=== PATIENT | female | born 1990 | race Caucasian/White ===

== ENCOUNTER 2017-03-22 09:51 | Emergency (ER) | payer OTHER ==
[~2017-03-22] VITALS: Ht 154.9 cm; Wt 89.4 kg
[2017-03-22 09:53] VITALS: TEMP 36.8; Ht 154.9 cm; Wt 89.4 kg
[2017-03-22] MEDS ORDERED: SODIUM CHLORIDE 0.9% 1000ML 1,000 ML IV STA (10:11)
[2017-03-22 10:52] LABS: URINE APPEARANCE CLEAR (CLEAR); URINE BILIRUBIN NEG (NEG); URINE COLOR YELLOW; URINE EPITHELIAL CELL AUTO >30 /lpf (0-5); URINE NITRITE NEG (NEG); URINE SPECIFIC GRAVITY 1.021 (1.000-1.030); UROBILINOGEN NEG (NEG); ZZUR CULT IF INDIC CLEAN CATCH YES
[2017-03-22 10:52] LABS: BASO % 0.6 %; BASO ABS # 0.04 K/uL (0-0.2); COMPLETE YES; EOS % 2.4 %; HEMATOCRIT 42.2 % (37-47); IG% 0.2 %; LYMPH % 39.4 %; LYMPH ABS # 2.49 K/uL (1.2-3.4); MEAN CELL VOLUME 92.1 fL (80-100); MEAN CORPUSCULAR HEMOGLOBIN 31.7 pg (25-34); MEAN CORPUSCULAR HGB CONC 34.4 g/dl (32-36); MEAN PLATELET VOLUME 9.9 fL (7.4-10.4); MONO % 11.2 %; NEUT % 46.2 %; PLATELET COUNT 257 K/uL (130-400); RED BLOOD COUNT 4.58 M/uL (4.2-5.4); WHITE BLOOD COUNT 6.32 K/uL (4.8-10.8)
[2017-03-22 10:53] LABS: MANUAL MICROSCOPIC REQUIRED? NO; REVIEW REQ? YES
[2017-03-22 11:07] LABS: ALKALINE PHOSPHATASE 91 U/L (45-117); ALT/SGPT 14 U/L (12-78); AST/SGOT 14 U/L (15-37); BLOOD UREA NITROGEN 11 mg/dl (7-18); BUN/CREATININE RATIO 13.2 (10-20); CALCIUM 8.7 mg/dl (8.5-10.1); CARBON DIOXIDE 23 mmol/L (21-32); CHLORIDE 110 mmol/L (98-107); CREATININE 0.82 mg/dl (0.60-1.20); GLUCOSE 108 mg/dl (70-99); POTASSIUM 4.1 mmol/L (3.5-5.1); SODIUM 141 mmol/L (136-145)
--- NOTE | 2017-03-22 11:07 | DIAGNOSTIC IMAGING REPORT ---
BILIARY ULTRASOUND CLINICAL HISTORY: Right upper quadrant abdominal pain COMPARISON STUDY: No previous studies for comparison. FINDINGS: The pancreas appears sonographically normal. The gallbladder appears sonographically normal. There is no ductal dilatation. The common bile duct measures 4 mm. There is no right-sided hydronephrosis. Within the right lobe of the liver, there is a 15 x 10 x 8 mm hyperechoic focus. This is consistent with although not specific for a hepatic hemangioma. IMPRESSION: 1. Ultrasonographically normal gallbladder 2. No evidence of ductal dilatation 3. Incidental 15 x 10 x 8 mm hyperechoic focus within the liver. Electronically signed by: Chris Hector M.D. 03/22/2017 11:06 AM Dictated Date/Time: 03/22/2017 11:04 AM
[2017-03-22] MEDS ORDERED: LEVO-713 PO (11:15)
[2017-03-22 12:26] VITALS: BP 100/66; PULSE 78; O2SAT 100
--- NOTE | 2017-03-22 16:23 | EMERGENCY ROOM VISIT NOTE ---
History Report prepared by Shan: Chaitanya Morales Under the Supervision of: Dr. Porter Rodriguez D.O. First contact with patient: 10:01 Chief Complaint: ABDOMINAL PAIN Stated Complaint: POSS. GALLBLADDER ISSUE Nursing Triage Summary: pt reports nausea and right abd abd pain since sunday. pt reports she was seen at [facility] and sent to ed for further eval. pt reports "all the women in my family have had their gall bladders out." History of Present Illness The patient is a 26 year old female who presents to the Emergency Room with complaints of constant RUQ abdominal pain that began four days ago. She rates her pain an 8/10 in severity. The patient was seen at [facility] and was referred to the ER for a possible gallbladder issue. Since Sunday, the patient has been having this constant pain that she describes as someone "punching her in the stomach repeatedly." She is also experiencing nausea. She notes that ever woman in her family has had their gallbladder removed. She denies any known history of gallstones. She states that nothing makes her symptoms better or worse, even fatty foods/drinking. She denies any fevers, cough, rhinorrhea, chest pain, shortness of breath, or abnormal urinary symptoms. Her last menstrual period was last week. She denies any previous abdominal surgeries. Source of History: patient Onset: four days ago Position: abdomen (RUQ) Symptom Intensity: 8/10 Quality: sharp Timing: constant Associated Symptoms: + nausea, No fevers, No cough, No chest pain, No SOB, No urinary symptoms Review of Systems See HPI for pertinent positives & negatives. A total of 10 systems reviewed and were otherwise negative. Past Medical & Surgical No known medical problems Family History FH: gallbladder disease Social History Smoking Status: Current Every Day Smoker Smokeless Tobacco Use: No Drug Use: none Housing Status: lives alone Occupation Status: employed Current/Historical Medications Scheduled Levonorgestrel & Eth Estradiol (Lutera), 1 TAB PO DAILY Allergies Coded Allergies: Amoxicillin (Unverified Adverse Reaction, Intermediate, HEAD TO TOE RASH, 03/22/17) Physical Exam Vital Signs Date Time Temp Pulse Resp B/P (MAP) Pulse Ox O2 Delivery O2 Flow Rate FiO2 03/22/17 12:26 78 20 100/66 100 Room Air 03/22/17 12:26 73 20 100/66 100 03/22/17 11:13 71 18 95/66 97 Room Air 03/22/17 09:53 36.8 90 18 112/80 98 Room Air Physical Exam GENERAL: Sitting up in bed holding RUQ, alert, well appearing, well nourished, minimal distress, non-toxic EYE EXAM: normal conjunctiva OROPHARYNX: no exudate, no erythema, lips, buccal mucosa, and tongue normal and mucous membranes are moist NECK: supple, no nuchal rigidity, no adenopathy, non-tender LUNGS: Clear to auscultation. Normal chest wall mechanics HEART: no murmurs, S1 normal and S2 normal ABDOMEN: abdomen soft, tenderness to palpation to the RUQ, normo-active bowel sounds, no masses, no rebound or guarding. BACK: Back is symmetrical on inspection and there is no deformity, no midline tenderness, no CVA tenderness. SKIN: no rashes and no bruising UPPER EXTREMITIES: upper extremities are grossly normal. LOWER EXTREMITIES: No pitting edema. NEURO EXAM: Normal sensorium, cranial nerves II-XII grossly intact, normal speech, no gross weakness of arms, no gross weakness of legs. Medical Decision & Procedures ER Provider Diagnostic Interpretation: Radiology results as stated below per my review and the radiologist's interpretation: BILIARY ULTRASOUND CLINICAL HISTORY: Right upper quadrant abdominal pain COMPARISON STUDY: No previous studies for comparison. FINDINGS: The pancreas appears sonographically normal. The gallbladder appears sonographically normal. There is no ductal dilatation. The common bile duct measures 4 mm. There is no right-sided hydronephrosis. Within the right lobe of the liver, there is a 15 x 10 x 8 mm hyperechoic focus. This is consistent with although not specific for a hepatic hemangioma. IMPRESSION: 1. Ultrasonographically normal gallbladder 2. No evidence of ductal dilatation 3. Incidental 15 x 10 x 8 mm hyperechoic focus within the liver. Electronically signed by: Chris Hector M.D. 03/22/2017 11:06 AM Dictated Date/Time: 03/22/2017 11:04 AM Laboratory Results 03/22/17 10:25 Red Blood Count 4.58, Mean Corpuscular Volume 92.1, Mean Corpuscular Hemoglobin 31.7, Mean Corpuscular Hemoglobin Concent 34.4, Mean Platelet Volume 9.9, Neutrophils (%) (Auto) 46.2, Lymphocytes (%) (Auto) 39.4, Monocytes (%) (Auto) 11.2, Eosinophils (%) (Auto) 2.4, Basophils (%) (Auto) 0.6, Neutrophils # (Auto ) 2.92, Lymphocytes # (Auto) 2.49, Monocytes # (Auto) 0.71, Eosinophils # (Auto ) 0.15, Basophils # (Auto) 0.04 03/22/17 10:25 Test 03/22/17 10:23 03/22/17 10:25 Urine Color YELLOW Urine Appearance CLEAR (CLEAR) Urine pH 5.0 (4.5-7.5) Urine Specific [place] 1.021 (1.000-1.030) Urine Protein NEG (NEG) Urine Glucose (UA) NEG (NEG) Urine Ketones NEG (NEG) Urine Occult Blood 2+ (NEG) Urine Nitrite NEG (NEG) Urine Bilirubin NEG (NEG) Urine Urobilinogen NEG (NEG) Urine Leukocyte Esterase TRACE (NEG) Urine WBC (Auto) 1-5 /hpf (0-5) Urine RBC (Auto) 0-4 /hpf (0-4) Urine Hyaline Casts (Auto) 1-5 /lpf (0-5) Urine Epithelial Cells (Auto) >30 /lpf (0-5) Urine Bacteria (Auto) 2+ (NEG) Urine Yeast (Auto) (NONE PRSENT) Urine Test NEG (NEG) White Blood Count 6.32 K/uL (4.8-10.8) Red Blood Count 4.58 M/uL (4.2-5.4) Hemoglobin 14.5 g/dL (12.0-16.0) Hematocrit 42.2 % (37-47) Mean Corpuscular Volume 92.1 fL (80-100) Mean Corpuscular Hemoglobin 31.7 pg (25-34) Mean Corpuscular Hemoglobin Concent 34.4 g/dl (32-36) Platelet Count 257 K/uL (130-400) Mean Platelet Volume 9.9 fL (7.4-10.4) Neutrophils (%) (Auto) 46.2 % Lymphocytes (%) (Auto) 39.4 % Monocytes (%) (Auto) 11.2 % Eosinophils (%) (Auto) 2.4 % Basophils (%) (Auto) 0.6 % Neutrophils # (Auto) 2.92 K/uL (1.4-6.5) Lymphocytes # (Auto) 2.49 K/uL (1.2-3.4) Monocytes # (Auto) 0.71 K/uL (0.11-0.59) Eosinophils # (Auto) 0.15 K/uL (0-0.5) Basophils # (Auto) 0.04 K/uL (0-0.2) RDW Standard Deviation 42.3 fL (36.4-46.3) RDW Coefficient of Variation 12.5 % (11.5-14.5) Immature Granulocyte % (Auto) 0.2 % Immature Granulocyte # (Auto) 0.01 K/uL (0.00-0.02) Anion Gap 8.0 mmol/L (3-11) Est Creatinine Clear Calc Drug Dose 107.6 ml/min Estimated GFR () 116.1 Estimated GFR (Non- 100.2 BUN/Creatinine Ratio 13.2 (10-20) Calcium Level 8.7 mg/dl (8.5-10.1) Total Bilirubin 0.5 mg/dl (0.2-1) Direct Bilirubin mg/dl (0-0.2) Aspartate Amino Transf (AST/SGOT) 14 U/L (15-37) Alanine Aminotransferase (ALT/SGPT) 14 U/L (12-78) Alkaline Phosphatase 91 U/L (45-117) Total Protein 7.2 gm/dl (6.4-8.2) Albumin 3.3 gm/dl (3.4-5.0) Lipase 84 U/L (73-393) Chemistry Specimen Hemolysis Laboratory results per my review. Medications Administered Medications (Trade) Dose Ordered Sig/Macario Route Start Time Stop Time Status Last Admin Dose Admin Sodium Chloride 1,000 ml @ 999 mls/hr Q1H1M STAT IV 03/22/17 10:11 03/22/17 11:11 DC 03/22/17 10:31 999 MLS/HR ED Course ED COURSE: Vital signs were reviewed and showed normal vitals. The patients medical record was reviewed The above diagnostic studies were performed and reviewed. ED treatments and interventions as stated above. 1001: The patient was evaluated in room A3. A complete history and physical examination was performed. 1011: Ordered Sodium Chloride 1000 ml @ 999 mls/hr IV 1230: Upon reevaluation, the patient is resting. I discussed my findings with the patient and she understands and agrees with the treatment plan. Based on the patients age, coexisting illnesses, exam and lab findings the decision to treat as an outpatient was made. The patient remained stable while under my care. The patient appeared well at the time of discharge. Medical Decision Differential diagnoses includes but is not limited to gastritis, peptic ulcer disease, GERD, gallbladder disease, pancreatitis, small bowel obstruction, acute coronary syndrome, pericarditis, ischemic bowel, irritable bowel disease, irritable bowel syndrome, appendicitis, diverticulitis, malignancy, hernia, urinary tract infection, torsion, /ectopic , perforation, trauma, infectious. Patient is a 26-year-old female who presents to ER for epigastric abdominal pain. She notes nothing makes this better or worse. It has been present for the past several days. Patient is no other complaints. No chest pain or shortness breath. On exam she does have minimal tenderness in the right upper quadrant. Ultrasound shows no signs of cholecystitis or choledocholithiasis. LFTs and bilirubin along with CBC and BMP was unremarkable. UA had multiple bacteria and epithelial cells suggesting contamination. was negative. Patient declined pain meds. She was discharged follow-up with PCP. Care management did help her set up an appointment. Discussed with Pt concerning signs and symptoms to watch out for. Pt was instructed to follow up with their PCP and discussed with the patient their option to return to the ED at anytime for persistent or worsening symptoms. The appropriate anticipatory guidance and out-patient management, including indications for return to the emergency department, were explained at length to the patient and understood. Medication Reconcilliation Current Medication List: was personally reviewed by me Blood Pressure Screening Patient's blood pressure: Normal blood pressure Blood pressure disposition: Did not require urgent referral Impression Primary Impression: Right upper quadrant abdominal pain Scribe Attestation The scribe's documentation has been prepared under my direction and personally reviewed by me in its entirety. I confirm that the note above accurately reflects all work, treatment, procedures, and medical decision making performed by me. Departure Information Dispostion Home / Self-Care Referrals No Doctor, Assigned (PCP) Forms HOME CARE DOCUMENTATION FORM, IMPORTANT VISIT INFORMATION Patient Instructions Abdominal Pain - [facility], [facility] Additional Instructions Please follow up with your primary care doctor with in the next 24 hours. Any worsening of your symptoms, please return to the ED immediately. This includes any fevers greater than 100.4, worsening pain, chest pain, shortness breath, persistent nausea, vomiting, unable to eat or drink, or any other concerning signs or symptoms from your standpoint. Please take Tylenol or Motrin as needed for pain.
== END 2017-03-22 12:27 | disposition home or self-care (01) ==
LOC: C.EDB 09:54 → C.EDA 12:27
DX: R10.11 Right upper quadrant pain (principal); F17.210 Nicotine dependence, cigarettes, uncomplicated; Z79.3 Long term (current) use of hormonal contraceptives

== ENCOUNTER 2017-05-07 07:18 | Day surgery (SDC) | payer OTHER ==
[2017-05-03 08:40] VITALS: BMI 37.0
[~2017-05-07] VITALS: Ht 154.9 cm; Wt 89.5 kg
[~2017-05-07 07:18] MED LIST: CLINDAMYCIN IV 900 MG in DEXTROSE 5% 50ML 44 ML IV SCH; LACTATED RINGER'S 1000ML 1,000 ML IV SCH; LEVO-645 PO
[2017-05-07] MEDS ORDERED: MIDAZOLAM HCL 1 MG/ML 2ML VIAL ONE (07:45)
[2017-05-07] MEDS ORDERED: PROPOFOL IV EMULSION 10 MG/ML 20 ML VIAL IV ONE (07:45)
[2017-05-07] MEDS ORDERED: ROCURONIUM BROMIDE 10 MG/ML 5 ML VIAL IV ONE (07:45)
[2017-05-07] MEDS ORDERED: LIDOCAINE HCL 2% 2 ML VIAL (20MG/ML) ONE (07:45)
[2017-05-07] MEDS ORDERED: FENTANYL CITRATE INJ 50 MCG/1 ML 2 ML VIAL ONE ×2 (07:45→08:52)
[2017-05-07 07:51] VITALS: BP 121/73; PULSE 91; TEMP 37.1; O2SAT 96; Ht 154.9 cm; Wt 89.5 kg
[2017-05-07] MEDS ORDERED: PROMETHAZINE HCL INJ 12.5 MG in SODIUM CHLORIDE 0.9% 50ML 50 ML IV PRN (08:00)
[2017-05-07] MEDS ORDERED: ONDANSETRON INJ 2 MG/ML 2 ML VIAL IV PRN ×2 (08:00→09:45)
[2017-05-07] MEDS ORDERED: CHECK SCOPOLAMINE PATCH PLACEMENT SCH (08:00)
[2017-05-07] MEDS ORDERED: ATROPINE SULFATE 0.1 MG/ML 5ML SYR IV PRN (08:00)
[2017-05-07] MEDS ORDERED: HYDROmorphone INJ 1 MG/ML SYR IV PRN (08:00)
[2017-05-07] MEDS ORDERED: EpHEDrine SULFATE INJ 50 MG/ML AMP IV PRN (08:00)
[2017-05-07] MEDS ORDERED: SCOPOLAMINE 1.5 MG TDSY TD SCH (08:00)
[2017-05-07] MEDS ORDERED: SCOPOLAMINE 1.5 MG TDSY TD ONE (08:17)
--- NOTE | 2017-05-07 08:24 | History & Physical Bridge Note ---
H&P Re-Evaluation Bridge Note: I have examined the patient, reviewed the History & Physical and in the interval since the performance of the History & Physical I have noted the following changes of clinical significance: No changes noted
[2017-05-07] MEDS ORDERED: BUPIVACAINE 0.5 % 5 MG/1 ML MPF 30ML VIAL ONE (08:26)
[2017-05-07] MEDS ORDERED: CONRAY 60% 50 ML VIAL ONE (08:26)
[2017-05-07] MEDS ORDERED: CEFAZOLIN SOD 1 GM VIAL ONE (08:26)
[2017-05-07] MEDS ORDERED: HEPARIN SOD (PORCINE) 1000 UNIT/ML 10 ML VIAL ONE (08:26)
[2017-05-07] MEDS ORDERED: GLYCOPYRROLATE INJ 0.2 MG/ML VIAL ONE (08:52)
[2017-05-07] MEDS ORDERED: ONDANSETRON INJ 2 MG/ML 2 ML VIAL ONE (08:52)
[2017-05-07] MEDS ORDERED: NEOSTIGMINE METHYLSULFATE 5 MG/5 ML SYR ONE (08:52)
[2017-05-07] MEDS ORDERED: DEXAMETHASONE SOD INJ 4 MG/ML VIAL ONE (08:52)
[2017-05-07] MEDS ORDERED: SODIUM CHLORIDE 0.9% 1000ML 1,000 ML IV SCH (09:41)
--- NOTE | 2017-05-07 09:41 | [facility] Post Operative Brief Note ---
Immediate Operative Summary Operative Date May 07, 2017. Pre-Operative Diagnosis gallbladder disease Post-Operative Diagnosis gallbladder disease Procedure(s) Performed laparoscopic cholecystectomy Surgeon Dr. Rodrick Garrido Telecom Analyst Surgeon(s) Shani FRANCES Estimated Blood Loss 3 cc Findings See dictation Specimens A: gallbladder and contents Drains None Anesthesia General Complication(s) None Disposition Recovery Room / PACU
[2017-05-07] MEDS ORDERED: MoRPHine SULFATE 4 MG/ML 1 ML CARP\\VIAL IV PRN (09:45)
[2017-05-07] MEDS ORDERED: OXYCODONE/ACETAMINOPHEN 5-325 TAB PO PRN (09:45)
--- NOTE | 2017-05-07 09:47 | Discharge Instructions ---
Discharge Instructions Date of Service May 07, 2017. Admission Reason for Admission: Gallbladder Disease Discharge Discharge Diagnosis / Problem: Same Discharge Goals Goal(s): Decrease discomfort Activity Recommendations Activity Limitations: per Instructions/Follow-up section Lifting Limitations: no more than 10 pounds (for 2 weeks) Shower/Bathe: tomorrow (shower only) . Instructions / Follow-Up Instructions / Follow-Up Post-Surgical ~ Discharge Instructions Activity Recommendations: - lifting limitation: (10 pounds for 2 weeks), - exercise/sex/sports limit: (nonstrenuous for 2 weeks), - driving or machine use limit: (none for 1 week), - Shower/bathe limit: (may shower beginning tomorrow) Diet: - Resume previous diet SPECIAL CARE INSTRUCTIONS: - May shower in 24 hours. Let water run over area and pat dry. - Leave steri strips on for one week. - Call the surgeon's office with any questions or concerns - - (ex. temperature higher than 101 degrees F, excessive bleeding or pain). MEDICATIONS: - Resume previous medications unless instructed otherwise by your surgeon. - Ibuprofen 600 mg every 6 hours with food - Percocet 1 every 4 hours, as needed for pain FOLLOW UP VISIT: - If not already scheduled, please call the office to schedule a two week follow-up appointment. Office number Current Hospital Diet Patient's current hospital diet: Discharge Diet Recommended Diet: Regular Diet Procedures Procedures Performed: laparoscopic cholecystectomy Pending Studies Studies pending at discharge: yes List of pending studies: Pathology Medical Emergencies . Who to Call and When: Medical Emergencies: If at any time you feel your situation is an emergency, please call 911 immediately. . Non-Emergent Contact Non-Emergency issues call your: Primary Care Provider, Surgeon Call Non-Emergent contact if: your pain is worsening, wound has increased redness, wound has increased pain . "Provider Documentation" section prepared by Rodrick Garrido. . VTE Core Measure Inpt VTE Proph given/why not?: Treatment not indicated
[2017-05-07] MEDS: FENTANYL CITRATE INJ 50 MCG/1 ML 2 ML VIAL IV PRN ×2 (10:00→10:05)
--- NOTE | 2017-05-07 10:07 | OPERATIVE REPORT ---
DATE OF OPERATION: 05/07/2017 PREOPERATIVE DIAGNOSIS: Gallbladder dyskinesia. POSTOPERATIVE DIAGNOSIS: Same. PROCEDURE: Laparoscopic cholecystectomy. SURGEON: Dr. Garrido. HEALTHCARE APPLICATIONS ANALYST: Shani Jenkins PA-C FINDINGS: The gallbladder had some adhesions to the infundibulum area. These were blunt. The cystic duct was not dilated. The gallbladder was not dilated. The visible bowel was normal. The liver was of normal size and contour. TECHNIQUE: The patient was given a general anesthetic and the area was prepped and draped in the usual sterile fashion. Transverse incision was made below the umbilicus, carried down through the subcutaneous tissue to the fascia which was grasped with 2 Marshal clamps and incised between. The peritoneum was identified, incised, and an introducer was placed bluntly. The abdomen was then insufflated to a pressure of 15 mmHg with carbon dioxide. The upper midline, midclavicular and anterior axillary introducers were placed under direct vision through small skin incisions. Traction was placed on the gallbladder and the adhesions were taken down using blunt cautery, dissection were appropriate. The infundibulum was grasped and the peritoneum was opened on the lateral side. It was peeled down towards the common bile duct and the infundibulum was dissected away from the liver on that side. The dissection was carried over the anterior surface of the infundibulum and the triangle of Calot was opened and the gallbladder was dissected away from the liver on that medial side, allowing me to create a window at the lower portion of the infundibulum behind the cystic duct and cystic artery. Further dissection of connective tissue, fatty tissue and lymphatics exposed the cystic duct and I was able to isolate it 360 degrees. That also allowed me to confidently identify the cystic duct gallbladder junction. Two clips were placed on the proximal cystic duct, 1 near the gallbladder and was divided. The cystic artery was then isolated and skeletonized. The artery was clipped twice proximally and once near the gallbladder and divided. The gallbladder was then peeled off the liver bed using electrocautery. The gallbladder was placed into an Endobag and brought out through the upper midline incision with ease. That introducer was replaced and liver edge was elevated. The gallbladder bed of the liver was inspected and there was no bleeding. The subdiaphragmatic and subhepatic spaces were irrigated and the irrigation removed. The gallbladder bed of the liver was again inspected and there was no bleeding. The gas was allowed to escape and the introducers were removed. The fascia of the umbilical introducer site was closed with interrupted 0 Vicryl and skin of all the incisions was closed with 4-0 Monocryl in either an interrupted or running subcuticular fashion. The skin was anesthetized with 0.5% Marcaine. The skin was the cleansed, dried, benzoin placed, Steri-Strips applied. Estimated blood loss was 30 mL. Sponge, needle and instrument counts were correct prior to closure. The patient tolerated the surgical procedure without complication and was transferred to recovery. I attest to the content of the Intraoperative Record and any orders documented therein. Any exception s are noted below.
[2017-05-07] MEDS ORDERED: NURSING VERBAL MED ORDER ONE ×2 (11:00→13:15)
[2017-05-07] MEDS ORDERED: PROMETHAZINE HCL INJ 12.5 MG in SODIUM CHLORIDE 0.9% 50ML 50 ML IV ONE (11:15)
--- NOTE | 2017-05-07 11:30 | Anesthesiology Progress Note ---
Anesthesia Post Op Note Date & Time May 07, 2017 at 11:29 Vital Signs Pain Intensity: 2 Vital Signs Past 12 Hours Date Time Temp Pulse Resp B/P (MAP) Pulse Ox O2 Delivery O2 Flow Rate FiO2 05/07/17 11:25 74 19 126/81 95 Nasal Cannula 2 05/07/17 11:15 77 20 131/80 96 Nasal Cannula 2 05/07/17 11:05 73 20 142/109 94 Nasal Cannula 2 05/07/17 10:55 71 21 141/99 94 Nasal Cannula 2 05/07/17 10:45 90 14 124/87 96 Nasal Cannula 2 05/07/17 10:35 74 22 116/88 95 Nasal Cannula 2 05/07/17 10:25 71 13 113/84 95 Nasal Cannula 2 05/07/17 10:15 83 19 121/85 95 Nasal Cannula 2 05/07/17 10:05 67 21 115/79 96 Oxymask 10 05/07/17 09:55 73 21 125/91 97 Oxymask 10 05/07/17 09:47 36.9 96 16 122/82 96 Oxymask 10 05/07/17 07:51 37.1 91 18 121/73 (89) 96 Room Air Notes Mental Status: alert / awake / arousable, participated in evaluation Pt Amnestic to Procedure: Yes Nausea / Vomiting: adequately controlled Pain: adequately controlled Airway Patency, RR, SpO2: stable & adequate BP & HR: stable & adequate Hydration State: stable & adequate Anesthetic Complications: no major complications apparent
[2017-05-07 11:40] VITALS: BP 128/75; PULSE 85; TEMP 36.9; O2SAT 96
[2017-05-07 12:15] VITALS: BP 117/79; PULSE 87; TEMP 36.8; O2SAT 93
[2017-05-07 13:00] VITALS: BP 123/73; PULSE 73; TEMP 36.4; O2SAT 92
[2017-05-07] MEDS ORDERED: METOCLOPRAMIDE HCL INJ 5 MG/ML 2 ML VIAL ONE (13:06)
[2017-05-07 13:25] VITALS: BP 128/76; PULSE 82; TEMP 37.2; O2SAT 95
== END 2017-05-07 13:35 | disposition home or self-care (01) ==
LOC: C.ACU 07:18
PROVIDERS: ATTEND Surgery
DX: K81.1 Chronic cholecystitis (principal); K82.8 Other specified diseases of gallbladder; Z79.899 Other long term (current) drug therapy; F17.200 Nicotine dependence, unspecified, uncomplicated; Z88.1 Allergy status to other antibiotic agents; E66.9 Obesity, unspecified; Z68.37 Body mass index [BMI] 37.0-37.9, adult; Z83.3 Family history of diabetes mellitus; Z82.49 Family history of ischemic heart disease and other diseases of the circulatory system; Z84.1 Family history of disorders of kidney and ureter

== ENCOUNTER 2020-02-02 22:26 | Inpatient (IN) ==
[2020-02-02] MEDS ORDERED: OXYTOCIN 30 UNITS/500 ML BAG IV PRN (23:31)
[2020-02-02] MEDS: METFORMIN HCL 500 MG TAB PO SCH (23:41)
[2020-02-02] MEDS ORDERED: BUPIVACAINE 0.25% 30 ML VIAL ONE (23:50)
[2020-02-02] MEDS ORDERED: ePHEDrine sulfate 50 MG/ML AMP ONE (23:50)
[2020-02-02] MEDS ORDERED: fentaNYL 2MCG/ML ROPIV 1.25MG/ML 100 ML BAG EPI ONE (23:51)
[2020-02-02] MEDS ORDERED: fentaNYL citrate 100 MCG/2 ML VIAL ONE (23:51)
[2020-02-02 23:53] LABS: Hematocrit (blood only) 42.6 % (37-47); Hemoglobin 14.6 g/dL (12.0-16.0); Mean Corpuscular Hemoglobin 32.7 pg (25-34); Mean Corpuscular Volume 95.5 fL (80-100); Mean Platelet Volume 11.9 fL (7.4-10.4); Platelet Count 159 K/uL (130-400); RDW Coefficient of Variation 13.2 % (11.5-14.5); RDW Standard Deviation 45.7 fL (36.4-46.3); Red Blood Count 4.46 M/uL (4.2-5.4); White Blood Count 10.96 K/uL (4.8-10.8)
--- NOTE | 2020-02-02 23:58 | Obstetrical Progress Note ---
Date of Service February 02, 2020 Assessment & Plan Admission and Anticipated Discharge Date Admission Date: February 02, 2020 Subjective Admit Note 29 F P0000 at 35.2 weeks admitted in active labor with PPROM clear fluid confirmed by Amni-sure. FHT Cat 1. Cervix 4-5/100/-2/vertex with bulging membranes. GDM on Metformin. GBS status unknown. Covid unknown. Will start IV antibiotics for GBS prophylaxis. Rapid Covid testing and GBS done and pending. Planning epidural. Results & Data ([facility]) Vital Signs (Past 12 Hours) Vital Signs Temp Pulse Resp BP 02/02/20 22:53 36.7 C 93 H 18 117/77 02/02/20 22:40 93 H 117/77
[2020-02-03] MEDS: LACTATED RINGER'S 1,000 ML IV PRN ×3 (00:01→13:35)
[2020-02-03] MEDS ORDERED: BETAMETH SOD PHOS/ACETATE IA 6 MG/ML IM STA (00:05)
--- NOTE | 2020-02-03 00:05 | Obstetrical Progress Note ---
Date of Service February 03, 2020 Assessment & Plan Admission and Anticipated Discharge Date Admission Date: February 02, 2020 Physical Exam Genitourinary: Manual OB Exam: + cervical dilation 6 cm, + cervical effacement 100%, + station -2 and + amniotic fluid OB Exam Monitor Tracing: + external FHT monitor used, + external uterine monitor used, + category I and + normal FHT variability Results & Data ([facility]) Vital Signs (Past 12 Hours) Vital Signs Temp Pulse Resp BP 02/02/20 22:53 36.7 C 93 H 18 117/77 02/02/20 22:40 93 H 117/77
[2020-02-03 00:13] LABS: Mean Corpuscular Hgb Conc 34.3 g/dL (32-36)
[2020-02-03] MEDS ORDERED: PENICILLIN G POTASSIUM 6 MU in DEXTROSE 5% 250 ML IV ONE (00:15)
--- NOTE | 2020-02-03 00:17 | Anesthesiology Consultation ---
Date of Service February 03, 2020 Assessment & Plan (1) Encounter for pre-operative examination: Chart Review Chart Review: Acceptable Risk for Labor Epidural Consults Requested none ASA ASA2 Proposed Anesthesia Anesthesia Type: Labor Epidural Risk / Benefits Reviewed With: PT / POA / Parent / Guardian, Accepts Plan and Informed Consent Obtained History Height/Weight Height: 5 ft 1 in Weight: 89.811 kg Allergies Allergy/AdvReac Type Severity Reaction Status Date / Time Sulfa (Sulfonamide Allergy Rash Verified 02/02/20 22:48 Antibiotics) amoxicillin AdvReac Intermediate HEAD TO Verified 02/02/20 22:48 TOE RASH Medications Home Medications Medication Instructions Recorded Confirmed Last Taken prenat.vits,rasheed,isv-ayjn-upuaa 1 tab PO DAILY 07/28/19 02/02/20 02/02/20 11:00 aspirin 81 mg PO DAILY 02/02/20 02/02/20 02/02/20 11:00 metformin 1,000 mg PO BID 02/02/20 02/02/20 02/02/20 11:00 Active Medications Generic Name Dose Route Start Last Admin Trade Name Lucille PRN Reason Stop Dose Admin Lactated Ringer's 1,000 mls @ 125 mls/hr 02/02/20 23:31 02/03/20 00:01 Lr IV 02/04/20 23:30 999 mls/hr .Q8H PRN Administration L&D Protocol Protocol Penicillin G Potassium 6 mu/ 262 mls @ 262 mls/hr 02/03/20 00:15 02/03/20 00:15 Dextrose IV 02/03/20 01:14 262 mls/hr NOW ONE Administration Metformin HCl 1,000 mg 02/02/20 23:30 02/02/20 23:41 Metformin Hcl 500 Mg Tab PO 03/03/20 23:29 1,000 mg BIDM ZAID Administration Past Medical History Medical History Diabetes type 2, uncontrolled Exercise / Class Metabolic Activity II 4-5 Yardwork/Stairs/Walk up hill Past Surgical History Surgical History History of cholecystectomy History of wisdom tooth extraction Past Anesthesia History No Hx of Anesthesia Complications and No Family Hx of Anesthesia Complications History of PONV No Hx of PONV and No Hx of Motion Sickness Social History Smoking Status: Former smoker Smoking End Date: July 04, 2019 Hx Alcohol Use: No Hx Substance Use: No substance use type: does not use Physical Exam Vital Signs Last Vital Signs Temp 98.1 F 02/02/20 22:53 Pulse 93 H 02/02/20 22:53 Resp 18 02/02/20 22:53 BP 117/77 02/02/20 22:53 ENMT Mouth: no dentition abnormality Thyromental Distance: > or= 3.5 Finger Breadths Mallampati Class: II Neck normal visual inspection Respiratory normal respiratory effort Auscultation: lungs clear to auscultation bilaterally Cardiovascular Rate/Rhythm: regular rate and regular rhythm Testing Laboratory Results 02/02/20 23:46 02/02/20 23:03 POC Glucose 316 H*
[2020-02-03] MEDS ORDERED: ONDANSETRON INJ 2 MG/ML 2 ML VIAL IV PRN ×2 (00:41→22:27)
[2020-02-03] MEDS ORDERED: NALOXONE HCL 1 MG in SODIUM CHLORIDE 0.9% 1000ML 1,000 ML IV PRN (00:41)
[2020-02-03] MEDS ORDERED: DiphenhydrAMINE HCL 50 MG/ML VIAL IV PRN (00:41)
[2020-02-03] MEDS ORDERED: fentaNYL 2MCG/ML ROPIV 1.25MG/ML 100 ML BAG EPI PRN (00:41)
[2020-02-03] MEDS ORDERED: NALOXONE HCL 0.4 MG/1 ML VIAL/CARP IV PRN (00:41)
[2020-02-03] MEDS ORDERED: ePHEDrine sulfate 50 MG/ML AMP IV PRN (00:41)
[2020-02-03] MEDS ORDERED: NovoLIN-R INSULIN PER UNIT CHARGE SC ONE ×2 (01:45)
[2020-02-03] MEDS ORDERED: NovoLIN-R INSULIN PER UNIT CHARGE SQ ONE (03:30)
[2020-02-03] MEDS: PENICILLIN G POTASSIUM 3 MU in DEXTROSE 5% 100 ML IV PRN ×4 (04:41→17:23)
[2020-02-03] MEDS ORDERED: INSULIN HUMAN REGULAR SC STA (05:01)
[2020-02-03] MEDS ORDERED: SODIUM CHLORIDE 0.9% 1000ML 1,000 ML IV PRN (06:34)
[2020-02-03] MEDS ORDERED: DEXTROSE 50% 50 ML SYRINGE IV PRN ×2 (06:34→18:45)
[2020-02-03] MEDS ORDERED: INSULIN REGULAR 250 UNITS in SODIUM CHLORIDE 0.9% 247.5 ML IV PRN (06:34)
[2020-02-03] MEDS ORDERED: DEXTROSE 5% 1,000 ML IV PRN (06:34)
--- NOTE | 2020-02-03 07:53 | History & Physical Report ---
Date of Service February 03, 2020 Assessment & Plan (1) premature rupture of membranes (PPROM) with onset of labor within 24 hours of rupture in third trimester, antepartum: 29 yo at 35.3 wks with PPROM at 2039 last night, active labor VSS Afebrile Type II DM On insulin drip, FS elevated Will consult pharmacy and notify peds FHR reassuring Continue to monitor closely (2) Type II diabetes mellitus: Admission and Anticipated Discharge Date Admission Date: February 02, 2020 History of Present Illness Primary Care Provider: Joao Howe MD Patient is a 29 yo at 35.3 wks admitted for PPROM ( 2039 pm on 02/01) and active labor by Dr Saha and received epidural for pain On PCN for unknown GBS Feels well no complaints No pain/ fever/ chills/ N&V/ CHRISTIE/ Change in vision Her has been complicated by 1) h/o Type II DM before , elevated HBA1C levels 2)h/o Adrenal CAH, resolved at age 22 Allergies Allergy/AdvReac Type Severity Reaction Status Date / Time Sulfa (Sulfonamide Allergy Rash Verified 02/02/20 22:48 Antibiotics) amoxicillin AdvReac Intermediate HEAD TO Verified 02/02/20 22:48 TOE RASH Home Medications Home Medications Medication Instructions Recorded Confirmed Type prenat.vits,rasheed,[id number] 1 tab PO DAILY 07/28/19 02/02/20 History aspirin 81 mg PO DAILY 02/02/20 02/02/20 History metformin 1,000 mg PO BID 02/02/20 02/02/20 History Patient History Medical History Diabetes type 2, uncontrolled Surgical History History of cholecystectomy History of wisdom tooth extraction Social History Smoking Status: Former smoker packs per day: 0.5; Smoking End Date: July 04, 2019; Second Hand Exposure: No; Hx Alcohol Use: No Hx Substance Use: No Preferred Language: Tajik Communication Ability: 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 Beliefs That Will Affect Care: None marital status: Current Living Situation: Spouse Other Information That Helps Us Care for You: No Feels Safe at Home: Yes Safety Concerns: Feels Safe At This Time TAR HEEL History No h/o STD's Review of Systems All systems reviewed & are unremarkable except as noted in HPI & below Physical Exam Constitutional: WD/WN, vitals as above well developed and well nourished Comfortable, NAD Genitourinary: + external erythema OB Exam Abdomen: + vertex Manual OB Exam: + cervical dilation 6 cm, + cervical effacement 80%, + station -2 and + amniotic fluid (large bulging bag, clear fluid) OB Exam Monitor Tracing: + category I and + normal FHT variability Results & Data ([facility]) Vital Signs (Past 12 Hours) Vital Signs Temp Pulse Resp BP Pulse Ox 02/03/20 07:43 97 H 98 02/03/20 07:38 89 97 02/03/20 07:33 84 96 02/03/20 07:28 80 97 02/03/20 07:23 76 97 02/03/20 07:18 78 96 02/03/20 07:13 78 96 02/03/20 07:10 37.1 C 18 02/03/20 07:08 81 97 02/03/20 07:06 83 110/74 02/03/20 07:03 83 97 02/03/20 07:00 18 02/03/20 06:58 92 H 96 02/03/20 06:53 82 97 02/03/20 06:51 77 110/68 02/03/20 06:48 77 96 02/03/20 06:43 75 97 02/03/20 06:38 82 97 02/03/20 06:36 75 114/70 02/03/20 06:33 73 97 02/03/20 06:30 18 02/03/20 06:28 80 97 02/03/20 06:23 76 112/69 97 02/03/20 06:18 79 97 02/03/20 06:13 77 97 02/03/20 06:08 77 97 02/03/20 06:06 72 111/68 02/03/20 06:03 77 96 02/03/20 06:00 37.0 C 18 02/03/20 05:58 80 96 02/03/20 05:53 75 95 02/03/20 05:51 68 107/66 09/01/20 05:48 75 95 02/03/20 05:43 74 95 02/03/20 05:38 75 95 02/03/20 05:36 77 108/66 02/03/20 05:33 76 95 02/03/20 05:30 18 02/03/20 05:28 89 94 02/03/20 05:23 72 96 02/03/20 05:22 72 108/64 02/03/20 05:18 75 95 02/03/20 05:13 73 95 02/03/20 05:08 73 112/63 95 02/03/20 05:03 72 96 02/03/20 05:00 16 02/03/20 04:58 72 95 02/03/20 04:53 72 113/62 96 02/03/20 04:48 80 98 02/03/20 04:43 74 97 02/03/20 04:40 37.2 C 02/03/20 04:38 74 95 02/03/20 04:36 73 109/61 02/03/20 04:35 73 94 02/03/20 04:33 70 95 02/03/20 04:30 16 02/03/20 04:28 75 95 02/03/20 04:23 72 95 02/03/20 04:22 67 107/62 94 02/03/20 04:18 72 94 02/03/20 04:17 70 94 02/03/20 04:13 69 94 02/03/20 04:11 69 94 02/03/20 04:07 70 94 02/03/20 04:06 65 110/60 02/03/20 04:05 69 94 02/03/20 04:02 67 94 02/03/20 04:00 16 02/03/20 03:57 72 94 02/03/20 03:55 68 94 02/03/20 03:53 66 95 02/03/20 03:52 68 114/64 02/03/20 03:47 69 96 02/03/20 03:42 77 96 02/03/20 03:37 72 118/60 94 02/03/20 03:33 73 94 02/03/20 03:32 70 95 02/03/20 03:30 16 02/03/20 03:28 69 94 02/03/20 03:27 68 94 02/03/20 03:22 69 94 02/03/20 03:21 67 115/64 02/03/20 03:17 75 94 02/03/20 03:15 73 94 02/03/20 03:12 73 94 02/03/20 03:08 69 94 02/03/20 03:07 67 115/67 96 02/03/20 03:02 74 94 02/03/20 02:57 69 95 02/03/20 02:52 67 118/69 97 02/03/20 02:51 36.7 C 02/03/20 02:47 83 97 02/03/20 02:46 76 94 02/03/20 02:42 75 94 02/03/20 02:41 74 94 02/03/20 02:37 75 123/70 95 02/03/20 02:36 70 94 02/03/20 02:32 70 94 02/03/20 02:30 72 16 94 02/03/20 02:27 73 95 02/03/20 02:22 75 119/72 95 02/03/20 02:21 76 94 02/03/20 02:17 71 95 02/03/20 02:12 71 97 02/03/20 02:07 76 97 02/03/20 02:06 75 120/77 02/03/20 02:02 75 97 02/03/20 02:00 16 02/03/20 01:57 73 98 02/03/20 01:53 80 124/77 02/03/20 01:52 88 98 02/03/20 01:47 78 98 02/03/20 01:42 80 98 02/03/20 01:37 79 98 02/03/20 01:36 81 119/66 02/03/20 01:32 81 120/64 98 02/03/20 01:30 16 02/03/20 01:27 82 99 02/03/20 01:26 90 113/69 02/03/20 01:22 88 99 02/03/20 01:21 83 110/66 02/03/20 01:18 86 113/66 02/03/20 01:17 86 99 02/03/20 01:12 91 H 99 02/03/20 01:11 90 112/72 02/03/20 01:07 82 112/72 99 02/03/20 01:02 88 99 02/03/20 01:01 83 16 112/71 02/03/20 00:57 84 100 02/03/20 00:56 83 18 113/71 02/03/20 00:52 87 99 02/03/20 00:51 81 16 106/63 02/03/20 00:50 37.1 C 16 02/03/20 00:47 101 H 100 02/03/20 00:45 83 18 106/63 02/03/20 00:43 96 H 16 111/72 02/03/20 00:42 89 16 111/69 99 02/03/20 00:40 37.1 C 02/03/20 00:39 88 18 114/72 02/03/20 00:37 110 H 100 02/03/20 00:35 95 H 18 117/78 02/03/20 00:32 98 H 99 02/03/20 00:27 90 99 02/03/20 00:22 109 H 100 02/03/20 00:17 101 H 100 02/03/20 00:00 18 02/02/20 23:30 18 02/02/20 22:53 36.7 C 93 H 18 117/77 02/02/20 22:40 36.7 C 93 H 18 117/77 Laboratory Results Lab Results 02/02/20 02/02/20 02/02/20 Range/Units 23:03 23:35 23:35 WBC (4.8-10.8) K/uL RBC (4.2-5.4) M/uL Hgb (12.0-16.0) g/dL Hct (37-47) % MCV (80-100) fL MCH (25-34) pg MCHC (32-36) g/dL RDW Std Deviation (36.4-46.3) fL RDW Coeff of Doron (11.5-14.5) % Plt Count (130-400) K/uL MPV (7.4-10.4) fL POC Glucose 316 H* (70-99) mg/dl Amniotic Protein COVID[facility]19 [facility] SARS-[facility]-2, RNA, NAAT NEGATIVE (NEGATIVE) 02/02/20 02/03/20 02/03/20 Range/Units 23:46 00:48 02:53 WBC 10.96 H (4.8-10.8) K/uL RBC 4.46 (4.2-5.4) M/uL Hgb 14.6 (12.0-16.0) g/dL Hct 42.6 (37-47) % MCV 95.5 (80-100) fL MCH 32.7 (25-34) pg MCHC 34.3 (32-36) g/dL RDW Std Deviation 45.7 (36.4-46.3) fL RDW Coeff of Doron 13.2 (11.5-14.5) % Plt Count 159 (130-400) K/uL MPV 11.9 H (7.4-10.4) fL POC Glucose 275 H 299 H (70-99) mg/dl Amniotic Protein COVID-19 Eval Order SARS-CoV-2, RNA, NAAT (NEGATIVE) 02/03/20 02/03/20 02/03/20 Range/Units 04:45 05:59 07:22 WBC (4.8-10.8) K/uL RBC (4.2-5.4) M/uL Hgb (12.0-16.0) g/dL Hct (37-47) % MCV (80-100) fL MCH (25-34) pg MCHC (32-36) g/dL RDW Std Deviation (36.4-46.3) fL RDW Coeff of Doron (11.5-14.5) % Plt Count (130-400) K/uL MPV (7.4-10.4) fL POC Glucose 249 H 233 H (70-99) mg/dl Amniotic Protein POS COVID-19 Eval Order SARS-CoV-2, RNA, NAAT (NEGATIVE)
[2020-02-03] MEDS ORDERED: OXYTOCIN 30 UNITS/500 ML BAG IV PRN ×2 (11:34→18:24)
--- NOTE | 2020-02-03 14:30 | Obstetrical Progress Note ---
Date of Service February 03, 2020 Assessment & Plan Admission and Anticipated Discharge Date Admission Date: February 02, 2020 Subjective Late entry from 1325 Patient is reevaluated Feel pressure in vagina/ rectum VSS Afebrile FHR had been categ I Pitocin is at 6 miu/min Nursing team unable to get much urine with cath Bed side US: vertex, facing up, OP Bladder almost empty VE; 8/ 90%/ 0 EFW from by MFM was 3050 gr, 91st percentile. AC 99th percentile Discussed increased risk of shoulder dystocia with baby's of diabetic mother due to increased / large torso and chest EFW Unlikely to be over 4500 gr now at 35 weeks Understands Continue to monitor closely Results & Data ([facility]) Vital Signs (Past 12 Hours) Vital Signs Temp Pulse Resp BP Pulse Ox 02/03/20 14:18 74 96 02/03/20 14:13 76 96 02/03/20 14:08 37.3 C 79 24 98 02/03/20 14:03 76 126/77 99 02/03/20 13:58 80 98 02/03/20 13:53 76 98 02/03/20 13:48 75 98 02/03/20 13:43 78 98 02/03/20 13:38 85 98 02/03/20 13:33 77 124/72 98 02/03/20 13:28 74 97 02/03/20 13:23 77 98 02/03/20 13:18 77 96 02/03/20 13:13 86 96 02/03/20 13:08 72 96 02/03/20 13:03 77 121/67 97 02/03/20 12:58 79 98 02/03/20 12:53 75 98 02/03/20 12:48 76 97 02/03/20 12:43 84 97 02/03/20 12:38 75 97 02/03/20 12:33 75 98 02/03/20 12:32 80 124/76 02/03/20 12:28 73 97 02/03/20 12:23 80 97 02/03/20 12:18 76 97 02/03/20 12:13 74 97 02/03/20 12:08 83 97 02/03/20 12:05 37.3 C 24 02/03/20 12:03 74 97 02/03/20 12:02 73 129/74 09/01/20 11:58 81 97 02/03/20 11:53 75 97 02/03/20 11:48 73 95 02/03/20 11:43 75 95 02/03/20 11:38 75 97 02/03/20 11:33 82 97 02/03/20 11:32 72 124/72 02/03/20 11:28 82 97 02/03/20 11:23 75 97 02/03/20 11:18 70 95 02/03/20 11:13 65 96 02/03/20 11:08 69 96 02/03/20 11:04 71 120/69 02/03/20 11:03 73 96 02/03/20 11:00 24 02/03/20 10:58 79 97 02/03/20 10:53 80 97 02/03/20 10:48 76 97 02/03/20 10:43 79 97 02/03/20 10:38 75 95 02/03/20 10:34 72 118/69 02/03/20 10:33 75 96 02/03/20 10:28 74 96 02/03/20 10:23 78 97 02/03/20 10:18 73 97 02/03/20 10:15 37.2 C 02/03/20 10:13 86 97 02/03/20 10:08 77 96 02/03/20 10:03 77 96 02/03/20 09:58 84 97 02/03/20 09:53 80 95 02/03/20 09:52 79 118/70 02/03/20 09:48 79 95 02/03/20 09:43 82 97 02/03/20 09:38 84 97 02/03/20 09:37 86 112/60 02/03/20 09:33 89 97 02/03/20 09:28 80 96 02/03/20 09:23 77 118/66 97 02/03/20 09:18 86 97 02/03/20 09:13 90 96 02/03/20 09:08 37.3 C 96 H 24 96 02/03/20 09:06 93 H 117/68 02/03/20 09:03 91 H 96 02/03/20 08:58 91 H 95 02/03/20 08:53 86 96 02/03/20 08:52 78 111/64 02/03/20 08:48 81 95 02/03/20 08:43 85 95 02/03/20 08:38 81 95 02/03/20 08:37 81 117/68 02/03/20 08:33 85 95 02/03/20 08:28 84 96 02/03/20 08:23 78 96 02/03/20 08:22 75 121/70 02/03/20 08:18 85 96 02/03/20 08:13 83 96 02/03/20 08:08 85 96 02/03/20 08:07 81 118/69 02/03/20 08:03 84 97 02/03/20 07:58 88 96 02/03/20 07:53 86 96 02/03/20 07:52 88 122/71 02/03/20 07:48 80 97 02/03/20 07:43 97 H 98 02/03/20 07:38 89 97 02/03/20 07:33 84 96 02/03/20 07:28 80 97 02/03/20 07:23 76 97 02/03/20 07:18 78 96 02/03/20 07:13 78 96 02/03/20 07:10 37.1 C 02/03/20 07:08 81 97 02/03/20 07:06 83 110/74 02/03/20 07:03 83 97 02/03/20 07:00 18 02/03/20 06:58 92 H 96 02/03/20 06:53 82 97 02/03/20 06:51 77 110/68 02/03/20 06:48 77 96 02/03/20 06:43 75 97 02/03/20 06:38 82 97 02/03/20 06:36 75 114/70 02/03/20 06:33 73 97 02/03/20 06:30 18 02/03/20 06:28 80 97 02/03/20 06:23 76 112/69 97 02/03/20 06:18 79 97 02/03/20 06:13 77 97 02/03/20 06:08 77 97 02/03/20 06:06 72 111/68 02/03/20 06:03 77 96 02/03/20 06:00 37.0 C 18 02/03/20 05:58 80 96 02/03/20 05:53 75 95 02/03/20 05:51 68 107/66 02/03/20 05:48 75 95 02/03/20 05:43 74 95 02/03/20 05:38 75 95 02/03/20 05:36 77 108/66 02/03/20 05:33 76 95 02/03/20 05:30 18 02/03/20 05:28 89 94 02/03/20 05:23 72 96 02/03/20 05:22 72 108/64 02/03/20 05:18 75 95 02/03/20 05:13 73 95 02/03/20 05:08 73 112/63 95 02/03/20 05:03 72 96 02/03/20 05:00 16 02/03/20 04:58 72 95 02/03/20 04:53 72 113/62 96 02/03/20 04:48 80 98 02/03/20 04:43 74 97 02/03/20 04:40 37.2 C 02/03/20 04:38 74 95 02/03/20 04:36 73 109/61 02/03/20 04:35 73 94 02/03/20 04:33 70 95 02/03/20 04:30 16 02/03/20 04:28 75 95 02/03/20 04:23 72 95 02/03/20 04:22 67 107/62 94 02/03/20 04:18 72 94 02/03/20 04:17 70 94 02/03/20 04:13 69 94 02/03/20 04:11 69 94 02/03/20 04:07 70 94 02/03/20 04:06 65 110/60 02/03/20 04:05 69 94 02/03/20 04:02 67 94 02/03/20 04:00 16 02/03/20 03:57 72 94 02/03/20 03:55 68 94 02/03/20 03:53 66 95 02/03/20 03:52 68 114/64 02/03/20 03:47 69 96 02/03/20 03:42 77 96 02/03/20 03:37 72 118/60 94 02/03/20 03:33 73 94 02/03/20 03:32 70 95 02/03/20 03:30 16 02/03/20 03:28 69 94 02/03/20 03:27 68 94 02/03/20 03:22 69 94 02/03/20 03:21 67 115/64 02/03/20 03:17 75 94 02/03/20 03:15 73 94 02/03/20 03:12 73 94 02/03/20 03:08 69 94 02/03/20 03:07 67 115/67 96 02/03/20 03:02 74 94 02/03/20 02:57 69 95 02/03/20 02:52 67 118/69 97 02/03/20 02:51 36.7 C 02/03/20 02:47 83 97 02/03/20 02:46 76 94 02/03/20 02:42 75 94 02/03/20 02:41 74 94 02/03/20 02:37 75 123/70 95 02/03/20 02:36 70 94 02/03/20 02:32 70 94 02/03/20 02:30 72 16 94 02/03/20 02:27 73 95
--- NOTE | 2020-02-03 16:01 | Obstetrical Progress Note ---
Date of Service February 03, 2020 Assessment & Plan Admission and Anticipated Discharge Date Admission Date: February 02, 2020 Physical Exam Physical Exam: Patient is reevaluated She feels well, pressure in rectum but not painful UOP has been low, s/p IVF bolus Will order labs VE; ant lip, head at +2 FHR categ I Cathay ctxs q 2-3 min Continue to monitor Will start pushing when fully dilated Results & Data ([facility]) Vital Signs (Past 12 Hours) Vital Signs Temp Pulse Resp BP Pulse Ox 02/03/20 15:58 76 98 02/03/20 15:53 73 97 02/03/20 15:48 72 94 02/03/20 15:43 74 95 02/03/20 15:38 71 96 02/03/20 15:33 67 96 02/03/20 15:32 69 114/68 02/03/20 15:28 81 96 02/03/20 15:23 72 95 02/03/20 15:18 70 96 02/03/20 15:13 81 97 02/03/20 15:08 74 97 02/03/20 15:03 79 120/72 97 02/03/20 14:58 72 96 02/03/20 14:53 73 95 02/03/20 14:48 73 95 02/03/20 14:43 72 96 02/03/20 14:38 85 97 02/03/20 14:33 74 123/76 96 02/03/20 14:28 83 95 02/03/20 14:23 74 96 02/03/20 14:18 74 96 02/03/20 14:13 76 96 02/03/20 14:08 37.3 C 79 24 98 02/03/20 14:03 76 126/77 99 02/03/20 13:58 80 98 02/03/20 13:53 76 98 02/03/20 13:48 75 98 02/03/20 13:43 78 98 02/03/20 13:38 85 98 02/03/20 13:33 77 124/72 98 02/03/20 13:28 74 97 02/03/20 13:23 77 98 02/03/20 13:18 77 96 02/03/20 13:13 86 96 02/03/20 13:08 72 96 02/03/20 13:03 77 121/67 97 02/03/20 12:58 79 98 02/03/20 12:53 75 98 02/03/20 12:48 76 97 02/03/20 12:43 84 97 02/03/20 12:38 75 97 02/03/20 12:33 75 98 02/03/20 12:32 80 124/76 02/03/20 12:28 73 97 02/03/20 12:23 80 97 02/03/20 12:18 76 97 02/03/20 12:13 74 97 02/03/20 12:08 83 97 02/03/20 12:05 37.3 C 24 02/03/20 12:03 74 97 02/03/20 12:02 73 129/74 02/03/20 11:58 81 97 02/03/20 11:53 75 97 02/03/20 11:48 73 95 02/03/20 11:43 75 95 02/03/20 11:38 75 97 02/03/20 11:33 82 97 02/03/20 11:32 72 124/72 02/03/20 11:28 82 97 02/03/20 11:23 75 97 02/03/20 11:18 70 95 02/03/20 11:13 65 96 02/03/20 11:08 69 96 02/03/20 11:04 71 120/69 02/03/20 11:03 73 96 02/03/20 11:00 24 02/03/20 10:58 79 97 02/03/20 10:53 80 97 02/03/20 10:48 76 97 02/03/20 10:43 79 97 02/03/20 10:38 75 95 02/03/20 10:34 72 118/69 02/03/20 10:33 75 96 02/03/20 10:28 74 96 02/03/20 10:23 78 97 02/03/20 10:18 73 97 02/03/20 10:15 37.2 C 02/03/20 10:13 86 97 02/03/20 10:08 77 96 02/03/20 10:03 77 96 02/03/20 09:58 84 97 02/03/20 09:53 80 95 02/03/20 09:52 79 118/70 02/03/20 09:48 79 95 02/03/20 09:43 82 97 02/03/20 09:38 84 97 02/03/20 09:37 86 112/60 02/03/20 09:33 89 97 02/03/20 09:28 80 96 02/03/20 09:23 77 118/66 97 02/03/20 09:18 86 97 02/03/20 09:13 90 96 02/03/20 09:08 37.3 C 96 H 24 96 02/03/20 09:06 93 H 117/68 02/03/20 09:03 91 H 96 02/03/20 08:58 91 H 95 02/03/20 08:53 86 96 02/03/20 08:52 78 111/64 02/03/20 08:48 81 95 02/03/20 08:43 85 95 02/03/20 08:38 81 95 02/03/20 08:37 81 117/68 02/03/20 08:33 85 95 02/03/20 08:28 84 96 02/03/20 08:23 78 96 02/03/20 08:22 75 121/70 02/03/20 08:18 85 96 02/03/20 08:13 83 96 02/03/20 08:08 85 96 02/03/20 08:07 81 118/69 02/03/20 08:03 84 97 02/03/20 07:58 88 96 02/03/20 07:53 86 96 02/03/20 07:52 88 122/71 02/03/20 07:48 80 97 02/03/20 07:43 97 H 98 02/03/20 07:38 89 97 02/03/20 07:33 84 96 02/03/20 07:28 80 97 02/03/20 07:23 76 97 02/03/20 07:18 78 96 02/03/20 07:13 78 96 02/03/20 07:10 37.1 C 18 02/03/20 07:08 81 97 02/03/20 07:06 83 110/74 02/03/20 07:03 83 97 02/03/20 07:00 18 02/03/20 06:58 92 H 96 02/03/20 06:53 82 97 02/03/20 06:51 77 110/68 02/03/20 06:48 77 96 02/03/20 06:43 75 97 02/03/20 06:38 82 97 02/03/20 06:36 75 114/70 02/03/20 06:33 73 97 02/03/20 06:30 18 02/03/20 06:28 80 97 02/03/20 06:23 76 112/69 97 02/03/20 06:18 79 97 02/03/20 06:13 77 97 02/03/20 06:08 77 97 02/03/20 06:06 72 111/68 02/03/20 06:03 77 96 02/03/20 06:00 37.0 C 18 02/03/20 05:58 80 96 02/03/20 05:53 75 95 02/03/20 05:51 68 107/66 02/03/20 05:48 75 95 02/03/20 05:43 74 95 02/03/20 05:38 75 95 02/03/20 05:36 77 108/66 02/03/20 05:33 76 95 02/03/20 05:30 18 02/03/20 05:28 89 94 02/03/20 05:23 72 96 02/03/20 05:22 72 108/64 02/03/20 05:18 75 95 02/03/20 05:13 73 95 02/03/20 05:08 73 112/63 95 02/03/20 05:03 72 96 02/03/20 05:00 16 02/03/20 04:58 72 95 02/03/20 04:53 72 113/62 96 02/03/20 04:48 80 98 02/03/20 04:43 74 97 02/03/20 04:40 37.2 C 02/03/20 04:38 74 95 02/03/20 04:36 73 109/61 02/03/20 04:35 73 94 02/03/20 04:33 70 95 02/03/20 04:30 16 02/03/20 04:28 75 95 02/03/20 04:23 72 95 02/03/20 04:22 67 107/62 94 02/03/20 04:18 72 94 02/03/20 04:17 70 94 02/03/20 04:13 69 94 02/03/20 04:11 69 94 02/03/20 04:07 70 94 09/01/20 04:06 65 110/60 02/03/20 04:05 69 94 02/03/20 04:02 67 94 02/03/20 04:00 16
[2020-02-03] MEDS: METFORMIN HCL 500 MG TAB PO SCH ×2 (16:06→18:43)
[2020-02-03 16:29] LABS: Basophils # (auto) 0.01 K/uL (0-0.2); Basophils % (auto) 0.1 %; Hematocrit (blood only) 41.3 % (37-47); Hemoglobin 14.5 g/dL (12.0-16.0); Immature Granulocytes # (auto) 0.08 K/uL (0.00-0.02); Immature Granulocytes % (auto) 0.5 %; Lymphocytes % (auto) 11.8 %; Mean Corpuscular Hemoglobin 32.5 pg (25-34); Mean Corpuscular Hgb Conc 35.1 g/dL (32-36); Mean Corpuscular Volume 92.6 fL (80-100); Mean Platelet Volume 12.2 fL (7.4-10.4); Monocytes # (auto) 1.24 K/uL (0.11-0.59); Monocytes % (auto) 7.7 %; Neutrophils # (auto) 12.94 K/uL (1.4-6.5); Neutrophils % (auto) 79.9 %; Platelet Count 146 K/uL (130-400); RDW Coefficient of Variation 13.2 % (11.5-14.5); RDW Standard Deviation 44.5 fL (36.4-46.3); Red Blood Count 4.46 M/uL (4.2-5.4); White Blood Count 16.17 K/uL (4.8-10.8)
[2020-02-03 16:51] LABS: Albumin Globulin Ratio 0.5 (0.9-2); Albumin Level 2.2 gm/dl (3.4-5.0); BUN Creatinine Ratio 15.3 (10-20); Bilirubin,Total 0.4 mg/dl (0.2-1); Calcium 8.9 mg/dl (8.5-10.1); Est GFR (Non-African American) 51.8; Globulin 4.1 gm/dl (2.5-4.0); Potassium 4.4 mmol/L (3.5-5.1); Total Protein 6.3 gm/dl (6.4-8.2)
--- NOTE | 2020-02-03 17:16 | Obstetrical Progress Note ---
Date of Service February 03, 2020 Assessment & Plan Admission and Anticipated Discharge Date Admission Date: February 02, 2020 Subjective Patient was fully dilated and desired to push She has been pushing with good efforts VE: 10/ head at +2 FHR categ I 02/03/20 02/03/20 02/03/20 Range/Units 17:06 16:18 16:18 WBC 16.17 H (4.8-10.8) K/uL RBC 4.46 (4.2-5.4) M/uL Hgb 14.5 (12.0-16.0) g/dL Hct 41.3 (37-47) % MCV 92.6 (80-100) fL MCH 32.5 (25-34) pg MCHC 35.1 (32-36) g/dL RDW Std Deviation 44.5 (36.4-46.3) fL RDW Coeff of Doron 13.2 (11.5-14.5) % Plt Count 146 (130-400) K/uL MPV 12.2 H (7.4-10.4) fL Immature Gran % (Auto) 0.5 % Neut % (Auto) 79.9 % Lymph % (Auto) 11.8 % Ripley % (Auto) 7.7 % Eos % (Auto) 0.0 % Baso % (Auto) 0.1 % Neut # (Auto) 12.94 H (1.4-6.5) K/uL Lymph # (Auto) 1.90 (1.2-3.4) K/uL Ripley # (Auto) 1.24 H (0.11-0.59) K/uL Eos # (Auto) 0.00 (0-0.5) K/uL Baso # (Auto) 0.01 (0-0.2) K/uL Immature Gran # (Auto) 0.08 H (0.00-0.02) K/uL Sodium 131 L (136-145) mmol/L Potassium 4.4 (3.5-5.1) mmol/L Chloride 101 (98-107) mmol/L Carbon Dioxide 18 L (21-32) mmol/L Anion Gap 12.0 H (3-11) BUN 21 H (7-18) mg/dl Creatinine 1.39 H (0.6-1.2) mg/dl Est Cr Clr Drug Dosing 62.0 ml/min Est GFR ( Amer) 60.0 Est GFR (Non-Af Amer) 51.8 BUN/Creatinine Ratio 15.3 (10-20) Glucose 117 H (70-99) mg/dl POC Glucose 110 H (70-99) mg/dl Calcium 8.9 (8.5-10.1) mg/dl Total Bilirubin 0.4 (0.2-1) mg/dl AST 33 (15-37) U/L ALT 33 (12-78) U/L Alkaline Phosphatase 194 H (45-117) U/L Total Protein 6.3 L (6.4-8.2) gm/dl Albumin 2.2 L (3.4-5.0) gm/dl Globulin 4.1 H (2.5-4.0) gm/dl Albumin/Globulin Ratio 0.5 L (0.9-2) Specimen Hemolysis Amniotic Protein COVID-19 Eval Order SARS-CoV-2, RNA, NAAT (NEGATIVE) 02/03/20 02/03/20 02/03/20 Range/Units 16:00 15:04 14:01 WBC (4.8-10.8) K/uL RBC (4.2-5.4) M/uL Hgb (12.0-16.0) g/dL Hct (37-47) % MCV (80-100) fL MCH (25-34) pg MCHC (32-36) g/dL RDW Std Deviation (36.4-46.3) fL RDW Coeff of Doron (11.5-14.5) % Plt Count (130-400) K/uL MPV (7.4-10.4) fL Immature Gran % (Auto) % Neut % (Auto) % Lymph % (Auto) % Ripley % (Auto) % Eos % (Auto) % Baso % (Auto) % Neut # (Auto) (1.4-6.5) K/uL Lymph # (Auto) (1.2-3.4) K/uL Ripley # (Auto) (0.11-0.59) K/uL Eos # (Auto) (0-0.5) K/uL Baso # (Auto) (0-0.2) K/uL Immature Gran # (Auto) (0.00-0.02) K/uL Sodium (136-145) mmol/L Potassium (3.5-5.1) mmol/L Chloride (98-107) mmol/L Carbon Dioxide (21-32) mmol/L Anion Gap (3-11) BUN (7-18) mg/dl Creatinine (0.6-1.2) mg/dl Est Cr Clr Drug Dosing ml/min Est GFR ( Amer) Est GFR (Non-Af Amer) BUN/Creatinine Ratio (10-20) Glucose (70-99) mg/dl POC Glucose 111 H 124 H 131 H (70-99) mg/dl Calcium (8.5-10.1) mg/dl Total Bilirubin (0.2-1) mg/dl AST (15-37) U/L ALT (12-78) U/L Alkaline Phosphatase (45-117) U/L Total Protein (6.4-8.2) gm/dl Albumin (3.4-5.0) gm/dl Globulin (2.5-4.0) gm/dl Albumin/Globulin Ratio (0.9-2) Specimen Hemolysis Amniotic Protein COVID-19 Eval Order SARS-CoV-2, RNA, NAAT (NEGATIVE) 02/03/20 02/03/20 02/03/20 Range/Units 13:00 11:58 10:59 WBC (4.8-10.8) K/uL RBC (4.2-5.4) M/uL Hgb (12.0-16.0) g/dL Hct (37-47) % MCV (80-100) fL MCH (25-34) pg MCHC (32-36) g/dL RDW Std Deviation (36.4-46.3) fL RDW Coeff of Doron (11.5-14.5) % Plt Count (130-400) K/uL MPV (7.4-10.4) fL Immature Gran % (Auto) % Neut % (Auto) % Lymph % (Auto) % Ripley % (Auto) % Eos % (Auto) % Baso % (Auto) % Neut # (Auto) (1.4-6.5) K/uL Lymph # (Auto) (1.2-3.4) K/uL Ripley # (Auto) (0.11-0.59) K/uL Eos # (Auto) (0-0.5) K/uL Baso # (Auto) (0-0.2) K/uL Immature Gran # (Auto) (0.00-0.02) K/uL Sodium (136-145) mmol/L Potassium (3.5-5.1) mmol/L Chloride (98-107) mmol/L Carbon Dioxide (21-32) mmol/L Anion Gap (3-11) BUN (7-18) mg/dl Creatinine (0.6-1.2) mg/dl Est Cr Clr Drug Dosing ml/min Est GFR ( Amer) Est GFR (Non-Af Amer) BUN/Creatinine Ratio (10-20) Glucose (70-99) mg/dl POC Glucose 120 H 149 H 154 H (70-99) mg/dl Calcium (8.5-10.1) mg/dl Total Bilirubin (0.2-1) mg/dl AST (15-37) U/L ALT (12-78) U/L Alkaline Phosphatase (45-117) U/L Total Protein (6.4-8.2) gm/dl Albumin (3.4-5.0) gm/dl Globulin (2.5-4.0) gm/dl Albumin/Globulin Ratio (0.9-2) Specimen Hemolysis Amniotic Protein COVID-19 Eval Order SARS-CoV-2, RNA, NAAT (NEGATIVE) 02/03/20 02/03/20 02/03/20 Range/Units 10:00 09:02 07:51 WBC (4.8-10.8) K/uL RBC (4.2-5.4) M/uL Hgb (12.0-16.0) g/dL Hct (37-47) % MCV (80-100) fL MCH (25-34) pg MCHC (32-36) g/dL RDW Std Deviation (36.4-46.3) fL RDW Coeff of Doron (11.5-14.5) % Plt Count (130-400) K/uL MPV (7.4-10.4) fL Immature Gran % (Auto) % Neut % (Auto) % Lymph % (Auto) % Ripley % (Auto) % Eos % (Auto) % Baso % (Auto) % Neut # (Auto) (1.4-6.5) K/uL Lymph # (Auto) (1.2-3.4) K/uL Ripley # (Auto) (0.11-0.59) K/uL Eos # (Auto) (0-0.5) K/uL Baso # (Auto) (0-0.2) K/uL Immature Gran # (Auto) (0.00-0.02) K/uL Sodium (136-145) mmol/L Potassium (3.5-5.1) mmol/L Chloride (98-107) mmol/L Carbon Dioxide (21-32) mmol/L Anion Gap (3-11) BUN (7-18) mg/dl Creatinine (0.6-1.2) mg/dl Est Cr Clr Drug Dosing ml/min Est GFR ( Amer) Est GFR (Non-Af Amer) BUN/Creatinine Ratio (10-20) Glucose (70-99) mg/dl POC Glucose 162 H 166 H 187 H (70-99) mg/dl Calcium (8.5-10.1) mg/dl Total Bilirubin (0.2-1) mg/dl AST (15-37) U/L ALT (12-78) U/L Alkaline Phosphatase (45-117) U/L Total Protein (6.4-8.2) gm/dl Albumin (3.4-5.0) gm/dl Globulin (2.5-4.0) gm/dl Albumin/Globulin Ratio (0.9-2) Specimen Hemolysis Amniotic Protein COVID-19 Eval Order SARS-CoV-2, RNA, NAAT (NEGATIVE) 02/03/20 02/03/20 02/03/20 Range/Units 07:22 05:59 04:45 WBC (4.8-10.8) K/uL RBC (4.2-5.4) M/uL Hgb (12.0-16.0) g/dL Hct (37-47) % MCV (80-100) fL MCH (25-34) pg MCHC (32-36) g/dL RDW Std Deviation (36.4-46.3) fL RDW Coeff of Doron (11.5-14.5) % Plt Count (130-400) K/uL MPV (7.4-10.4) fL Immature Gran % (Auto) % Neut % (Auto) % Lymph % (Auto) % Ripley % (Auto) % Eos % (Auto) % Baso % (Auto) % Neut # (Auto) (1.4-6.5) K/uL Lymph # (Auto) (1.2-3.4) K/uL Ripley # (Auto) (0.11-0.59) K/uL Eos # (Auto) (0-0.5) K/uL Baso # (Auto) (0-0.2) K/uL Immature Gran # (Auto) (0.00-0.02) K/uL Sodium (136-145) mmol/L Potassium (3.5-5.1) mmol/L Chloride (98-107) mmol/L Carbon Dioxide (21-32) mmol/L Anion Gap (3-11) BUN (7-18) mg/dl Creatinine (0.6-1.2) mg/dl Est Cr Clr Drug Dosing ml/min Est GFR ( Amer) Est GFR (Non-Af Amer) BUN/Creatinine Ratio (10-20) Glucose (70-99) mg/dl POC Glucose 233 H 249 H (70-99) mg/dl Calcium (8.5-10.1) mg/dl Total Bilirubin (0.2-1) mg/dl AST (15-37) U/L ALT (12-78) U/L Alkaline Phosphatase (45-117) U/L Total Protein (6.4-8.2) gm/dl Albumin (3.4-5.0) gm/dl Globulin (2.5-4.0) gm/dl Albumin/Globulin Ratio (0.9-2) Specimen Hemolysis Amniotic Protein POS COVID-19 Eval Order SARS-CoV-2, RNA, NAAT (NEGATIVE) 02/03/20 02/03/20 02/02/20 Range/Units 02:53 00:48 23:46 WBC 10.96 H (4.8-10.8) K/uL RBC 4.46 (4.2-5.4) M/uL Hgb 14.6 (12.0-16.0) g/dL Hct 42.6 (37-47) % MCV 95.5 (80-100) fL MCH 32.7 (25-34) pg MCHC 34.3 (32-36) g/dL RDW Std Deviation 45.7 (36.4-46.3) fL RDW Coeff of Doron 13.2 (11.5-14.5) % Plt Count 159 (130-400) K/uL MPV 11.9 H (7.4-10.4) fL Immature Gran % (Auto) % Neut % (Auto) % Lymph % (Auto) % Ripley % (Auto) % Eos % (Auto) % Baso % (Auto) % Neut # (Auto) (1.4-6.5) K/uL Lymph # (Auto) (1.2-3.4) K/uL Ripley # (Auto) (0.11-0.59) K/uL Eos # (Auto) (0-0.5) K/uL Baso # (Auto) (0-0.2) K/uL Immature Gran # (Auto) (0.00-0.02) K/uL Sodium (136-145) mmol/L Potassium (3.5-5.1) mmol/L Chloride (98-107) mmol/L Carbon Dioxide (21-32) mmol/L Anion Gap (3-11) BUN (7-18) mg/dl Creatinine (0.6-1.2) mg/dl Est Cr Clr Drug Dosing ml/min Est GFR ( Amer) Est GFR (Non-Af Amer) BUN/Creatinine Ratio (10-20) Glucose (70-99) mg/dl POC Glucose 299 H 275 H (70-99) mg/dl Calcium (8.5-10.1) mg/dl Total Bilirubin (0.2-1) mg/dl AST (15-37) U/L ALT (12-78) U/L Alkaline Phosphatase (45-117) U/L Total Protein (6.4-8.2) gm/dl Albumin (3.4-5.0) gm/dl Globulin (2.5-4.0) gm/dl Albumin/Globulin Ratio (0.9-2) Specimen Hemolysis Amniotic Protein COVID-19 Eval Order SARS-CoV-2, RNA, NAAT (NEGATIVE) 02/02/20 02/02/20 02/02/20 Range/Units 23:35 23:35 23:03 WBC (4.8-10.8) K/uL RBC (4.2-5.4) M/uL Hgb (12.0-16.0) g/dL Hct (37-47) % MCV (80-100) fL MCH (25-34) pg MCHC (32-36) g/dL RDW Std Deviation (36.4-46.3) fL RDW Coeff of Doron (11.5-14.5) % Plt Count (130-400) K/uL MPV (7.4-10.4) fL Immature Gran % (Auto) % Neut % (Auto) % Lymph % (Auto) % Ripley % (Auto) % Eos % (Auto) % Baso % (Auto) % Neut # (Auto) (1.4-6.5) K/uL Lymph # (Auto) (1.2-3.4) K/uL Ripley # (Auto) (0.11-0.59) K/uL Eos # (Auto) (0-0.5) K/uL Baso # (Auto) (0-0.2) K/uL Immature Gran # (Auto) (0.00-0.02) K/uL Sodium (136-145) mmol/L Potassium (3.5-5.1) mmol/L Chloride (98-107) mmol/L Carbon Dioxide (21-32) mmol/L Anion Gap (3-11) BUN (7-18) mg/dl Creatinine (0.6-1.2) mg/dl Est Cr Clr Drug Dosing ml/min Est GFR ( Amer) Est GFR (Non-Af Amer) BUN/Creatinine Ratio (10-20) Glucose (70-99) mg/dl POC Glucose 316 H* (70-99) mg/dl Calcium (8.5-10.1) mg/dl Total Bilirubin (0.2-1) mg/dl AST (15-37) U/L ALT (12-78) U/L Alkaline Phosphatase (45-117) U/L Total Protein (6.4-8.2) gm/dl Albumin (3.4-5.0) gm/dl Globulin (2.5-4.0) gm/dl Albumin/Globulin Ratio (0.9-2) Specimen Hemolysis Amniotic Protein COVID-19 Eval [facility] SARS-[facility], RNA, NAAT NEGATIVE (NEGATIVE) Creatinine elevated, was normal on 01/[address] Mast from Nephrology and she will review the chart and call me back with recommendations Continue to monitor closely Results & Data ([facility]) Vital Signs (Past 12 Hours) Vital Signs Temp Pulse Resp BP Pulse Ox 02/03/20 17:08 100 H 97 02/03/20 17:05 86 139/89 02/03/20 17:03 121 H 98 02/03/20 16:58 107 H 96 02/03/20 16:53 88 98 02/03/20 16:48 91 H 98 02/03/20 16:43 75 97 02/03/20 16:38 86 97 02/03/20 16:33 75 132/75 97 02/03/20 16:28 76 96 02/03/20 16:23 78 97 02/03/20 16:18 81 98 02/03/20 16:13 75 98 02/03/20 16:08 37.2 C 79 22 98 02/03/20 16:04 74 123/74 02/03/20 16:03 74 98 02/03/20 15:58 76 98 02/03/20 15:53 73 97 02/03/20 15:48 72 94 02/03/20 15:43 74 95 02/03/20 15:38 71 96 02/03/20 15:33 67 96 02/03/20 15:32 69 114/68 02/03/20 15:28 81 96 02/03/20 15:23 72 95 02/03/20 15:18 70 96 02/03/20 15:13 81 97 02/03/20 15:08 74 97 02/03/20 15:03 79 120/72 97 02/03/20 14:58 72 96 02/03/20 14:53 73 95 02/03/20 14:48 73 95 02/03/20 14:43 72 96 02/03/20 14:38 85 97 02/03/20 14:33 74 123/76 96 02/03/20 14:28 83 95 02/03/20 14:23 74 96 02/03/20 14:18 74 96 02/03/20 14:13 76 96 02/03/20 14:08 37.3 C 79 24 98 02/03/20 14:03 76 126/77 99 02/03/20 13:58 80 98 02/03/20 13:53 76 98 02/03/20 13:48 75 98 02/03/20 13:43 78 98 02/03/20 13:38 85 98 02/03/20 13:33 77 124/72 98 02/03/20 13:28 74 97 02/03/20 13:23 77 98 02/03/20 13:18 77 96 02/03/20 13:13 86 96 02/03/20 13:08 72 96 02/03/20 13:03 77 121/67 97 02/03/20 12:58 79 98 02/03/20 12:53 75 98 02/03/20 12:48 76 97 02/03/20 12:43 84 97 02/03/20 12:38 75 97 02/03/20 12:33 75 98 02/03/20 12:32 80 124/76 02/03/20 12:28 73 97 02/03/20 12:23 80 97 02/03/20 12:18 76 97 02/03/20 12:13 74 97 02/03/20 12:08 83 97 02/03/20 12:05 37.3 C 24 02/03/20 12:03 74 97 02/03/20 12:02 73 129/74 02/03/20 11:58 81 97 02/03/20 11:53 75 97 02/03/20 11:48 73 95 02/03/20 11:43 75 95 02/03/20 11:38 75 97 02/03/20 11:33 82 97 02/03/20 11:32 72 124/72 02/03/20 11:28 82 97 02/03/20 11:23 75 97 02/03/20 11:18 70 95 02/03/20 11:13 65 96 02/03/20 11:08 69 96 02/03/20 11:04 71 120/69 02/03/20 11:03 73 96 02/03/20 11:00 24 02/03/20 10:58 79 97 02/03/20 10:53 80 97 02/03/20 10:48 76 97 02/03/20 10:43 79 97 02/03/20 10:38 75 95 02/03/20 10:34 72 118/69 02/03/20 10:33 75 96 02/03/20 10:28 74 96 02/03/20 10:23 78 97 02/03/20 10:18 73 97 02/03/20 10:15 37.2 C 02/03/20 10:13 86 97 02/03/20 10:08 77 96 02/03/20 10:03 77 96 02/03/20 09:58 84 97 02/03/20 09:53 80 95 02/03/20 09:52 79 118/70 02/03/20 09:48 79 95 02/03/20 09:43 82 97 02/03/20 09:38 84 97 02/03/20 09:37 86 112/60 02/03/20 09:33 89 97 02/03/20 09:28 80 96 02/03/20 09:23 77 118/66 97 02/03/20 09:18 86 97 02/03/20 09:13 90 96 02/03/20 09:08 37.3 C 96 H 24 96 02/03/20 09:06 93 H 117/68 02/03/20 09:03 91 H 96 02/03/20 08:58 91 H 95 02/03/20 08:53 86 96 02/03/20 08:52 78 111/64 02/03/20 08:48 81 95 02/03/20 08:43 85 95 02/03/20 08:38 81 95 02/03/20 08:37 81 117/68 02/03/20 08:33 85 95 02/03/20 08:28 84 96 02/03/20 08:23 78 96 02/03/20 08:22 75 121/70 02/03/20 08:18 85 96 02/03/20 08:13 83 96 02/03/20 08:08 85 96 02/03/20 08:07 81 118/69 02/03/20 08:03 84 97 02/03/20 07:58 88 96 02/03/20 07:53 86 96 02/03/20 07:52 88 122/71 02/03/20 07:48 80 97 02/03/20 07:43 97 H 98 02/03/20 07:38 89 97 02/03/20 07:33 84 96 09/01/20 07:28 80 97 02/03/20 07:23 76 97 02/03/20 07:18 78 96 02/03/20 07:13 78 96 02/03/20 07:10 37.1 C 02/03/20 07:08 81 97 02/03/20 07:06 83 110/74 02/03/20 07:03 83 97 02/03/20 07:00 18 02/03/20 06:58 92 H 96 02/03/20 06:53 82 97 02/03/20 06:51 77 110/68 02/03/20 06:48 77 96 02/03/20 06:43 75 97 02/03/20 06:38 82 97 02/03/20 06:36 75 114/70 02/03/20 06:33 73 97 02/03/20 06:30 18 02/03/20 06:28 80 97 02/03/20 06:23 76 112/69 97 02/03/20 06:18 79 97 02/03/20 06:13 77 97 02/03/20 06:08 77 97 02/03/20 06:06 72 111/68 02/03/20 06:03 77 96 02/03/20 06:00 37.0 C 02/03/20 05:58 80 96 02/03/20 05:53 75 95 02/03/20 05:51 68 107/66 02/03/20 05:48 75 95 02/03/20 05:43 74 95 02/03/20 05:38 75 95 02/03/20 05:36 77 108/66 02/03/20 05:33 76 95 02/03/20 05:30 18 02/03/20 05:28 89 94 02/03/20 05:23 72 96 02/03/20 05:22 72 108/64 02/03/20 05:18 75 95
--- NOTE | 2020-02-03 17:20 | Communication Note ---
Date of Service: February 03, [address] Gonzalez as button puncher applications instructor to discuss patient since creatinine has gone from 0.7 on 01/23 to 1.4 today. BP, I/O, current meds and labs reviewed along with documents in chart reviewed. I have not examined this pt in person. pt is actively vaginally delivering 35 wk infant currently. BP, plts OK. hx of DM started on metformin as OP and on insulin gtt here. concern for oliguria. AG of 12 and bicarb high teens also present on 01/23 labs in addition to those today. receiving aggressive rates of normal saline and LR as indicated. note she was in ER w/ L ankle sprain 01/23 and at d/c advised to take tylenol for pain with limit of 3 gm daily RECOMMEND -stop metformin -no nsaids for pain control now or post -consider pharmacy or internal medicine consult for blood glucose mgt -continue current IV fluids -I ordered UACM, prot/creat spot ratio -pls order cmp, cbc for am labs >>pls place consult for nephrology and my partner will see her in AM; I am button puncher until he comes on at 7AM tomorrow -- pls call or qliq or tiger text if concerns in interval
[2020-02-03] MEDS ORDERED: MEASLES, MUMPS & RUBELLA VIRUS VIAL SQ ONE (18:24)
[2020-02-03] MEDS ORDERED: DIPHTHERIA/TETANUS/PERTUSSIS 0.5 ML SYR/VIAL IM ONE (18:24)
[2020-02-03] MEDS ORDERED: OXYCODONE/ACETAMINOPHEN 5mg/325mg TAB PO PRN (18:24)
[2020-02-03] MEDS ORDERED: BENZOCAINE 20% AER SPR 82.5 GM CAN EXT PRN (18:24)
[2020-02-03] MEDS ORDERED: HYDROCORTISONE ACETATE 25 MG SUPP PR PRN (18:24)
[2020-02-03] MEDS ORDERED: SUPERCREAM 0.870% 15 GM JAR EXT PRN (18:24)
[2020-02-03] MEDS ORDERED: PHARMACY GLYCEMIC MGMT CONSULT PRN (18:35)
[2020-02-03] MEDS ORDERED: CARBOHYDRATES FOR HYPOGLYCEMIA PO PRN (18:45)
[2020-02-03] MEDS ORDERED: GLUCOSE 10 TABS/TUBE PO PRN (18:45)
[2020-02-03] MEDS ORDERED: GLUCOSE 40% GEL 15 GM TUBE PO PRN (18:45)
[2020-02-03] MEDS ORDERED: GLUCAGON FOR INJ 1 MG VIAL SQ PRN (18:45)
--- NOTE | 2020-02-03 18:45 | Anesthesia Procedure Note ---
Date of Service February 03, 2020 Anesthesia Post Epidural Note Vital Signs Vital Signs: Temp Pulse Resp BP Pulse Ox 37.2 C 84 22 106/60 97 02/03/20 16:08 02/03/20 18:35 02/03/20 16:08 02/03/20 18:35 02/03/20 18:18 Notes Mental Status: alert / awake / arousable and participated in evaluation Nausea / Vomiting: adequately controlled Pain: adequately controlled Airway Patency, RR, SpO2: stable & adequate BP & HR: stable & adequate Hydration State: stable & adequate Neuraxial Anesthesia: was administered and sensory block is resolving Anesthetic Complications: no major complications apparent and Pt Satisfied with anesthetic care Epidural: Removed without complications and With tip intact
[2020-02-03 19:00] LABS: Base Excess Cord Arterial Bld -3.5 mEq/L (-9-1.8); CO2 Cord Arterial Blood 64 mmHg (39.1-73.5); HCO3 Cord Arterial Blood 25 mmol/L (19.7-28.5); PO2 Cord Arterial Blood 18 mmHg (4.1-31.7); pH Cord Arterial Blood 7.21 (7.1-7.38)
[2020-02-03 19:01] LABS: Base Excess Cord Venous Blood -4.3 mEq/L (-7.7-1.9); Cord Venous Blood HCO3 22 mmol/L (18.4-26.8); Cord Venous Blood PCO2 47 mmHg (30.4-57.2); Cord Venous Blood PO2 28 mmHg (14.1-43.3); Cord Venous Blood pH 7.29 (7.20-7.44)
[2020-02-03 19:04] LABS: O2 Saturation Cord Venous Bld < 60.0 % (<68); Oxygen Sat Cord Arterial Blood < 60.0 % (<60)
[2020-02-03] MEDS: METHYLERGONOVINE MALEATE 0.2 MG TAB PO SCH ×2 (19:26→22:20)
[2020-02-03] MEDS: INSULIN ASPART 100 UNITS/ML 3 ML PEN SC SCH (19:59)
[2020-02-03] MEDS ORDERED: INSULIN GLARGINE SOLOSTAR 100 UNITS/ML 3 ML PEN SC ONE (21:30)
[2020-02-03] MEDS: DOCUSATE SODIUM 100 MG CAP PO SCH (22:19)
--- NOTE | 2020-02-03 22:54 | Delivery Summary ---
DATE OF OPERATION: 02/03/2020 TIME OF DELIVERY: 18:05 p.m. DETAILS OF DELIVERY: The patient was found to be fully dilated and desired to push. She pushed for about an hour and delivered the head and turtle sign was noted on the perineum. Nursing team was already ready for possible shoulder dystocia, episiotomy was opened earlier when the head was . Her legs were hyperflexed with Mc Kwasi's maneuver and with suprapubic pressure, unable to deliver the shoulders and I was able to get the posterior shoulder, which was the right shoulder with arm and delivered and then the left shoulder and arm delivered and then the trunk/ abdomen also had dystocia with a tight fit. Baby's chest was held with towels under the arms and with the patient pushing the baby's abdomen/ trunk was delivered and then cord was clamped x2 and cut. Baby was handed off to the waiting pediatric team with Dr. Sarah. The time between the delivery of the head and the shoulders and the body was 1 minute. The vagina and perineum were checked for lacerations. There was only the right medial lateral episiotomy which was opened earlier. It was repaired with 2-0 Vicryl in a running locked fashion, skin in a subcuticular fashion. Excellent hemostasis was achieved. Rectal exam was done and confirmed to be good sphincter tone, no sutures were felt and the rest of the vagina and perineum were intact. The gloves were changed. The placenta was found to be in the vagina, delivered spontaneously as intact and complete. Uterus was explored, found to be empty. Lower segment was cleared of all clots and debris. EBL was 300 mL. Fundus was firm. Mom and baby tolerated the procedure well. Sponge, lap, needle count was correct x2. Baby was a viable male , Apgars 6/8, weight is 8 pounds 15 ounces ( 4060 gr). No other complications happened and I was present during whole procedure. I attest to the content of the Intraoperative Record and any orders documented therein. Any exceptions are noted below. MTDD
[2020-02-04] MEDS: INSULIN ASPART 100 UNITS/ML 3 ML PEN SC SCH ×6 (00:26→21:34)
[2020-02-04] MEDS: ACETAMINOPHEN 325 MG TAB PO PRN ×4 (00:30→21:42)
[2020-02-04] MEDS ORDERED: INSULIN ASPART 100 UNITS/ML 3 ML PEN SC SCH (02:00)
[2020-02-04 05:36] LABS: Creatinine Urine Random 34.4 mg/dl; Protein Creatinine Ratio Urine 3.5 (0-0.2); Total Protein Urine Random 121.7 mg/dl (0-11.9)
[2020-02-04 05:40] LABS: Appearance Urine Cloudy (Clear); Color Urine Red; Protein Urine Positive (Negative); Specific Gravity Urine 1.007 (1.000-1.060); Sulfosalicylic Acid Urine Positive (Negative)
[2020-02-04 05:51] LABS: Bacteria Urine Negative (Negative)
[2020-02-04] MEDS ORDERED: INSULIN GLARGINE SOLOSTAR 100 UNITS/ML 3 ML PEN SC ONE (06:00)
[2020-02-04 06:02] LABS: Hematocrit (blood only) 39.6 % (37-47); Hemoglobin 13.7 g/dL (12.0-16.0); Mean Corpuscular Hemoglobin 32.4 pg (25-34); Mean Corpuscular Hgb Conc 34.6 g/dL (32-36); Mean Corpuscular Volume 93.6 fL (80-100); Mean Platelet Volume 11.8 fL (7.4-10.4); Platelet Count 155 K/uL (130-400); RDW Coefficient of Variation 13.3 % (11.5-14.5); RDW Standard Deviation 45.5 fL (36.4-46.3); Red Blood Count 4.23 M/uL (4.2-5.4); White Blood Count 19.63 K/uL (4.8-10.8)
[2020-02-04 06:24] LABS: Estimated Average Glucose 258 mg/dl; Hemoglobin A1C 10.6 % (4.5-5.6)
[2020-02-04] MEDS: PRENATAL VITAMIN 1 TAB PO SCH (08:34)
[2020-02-04] MEDS: DOCUSATE SODIUM 100 MG CAP PO SCH ×2 (08:34→20:20)
[2020-02-04] MEDS: METHYLERGONOVINE MALEATE 0.2 MG TAB PO SCH ×4 (08:34→20:20)
[2020-02-04] MEDS: FERROUS SULFATE 325 MG TAB PO SCH (08:34)
[2020-02-04 10:11] LABS: BUN Creatinine Ratio 14.3 (10-20); Calcium 8.9 mg/dl (8.5-10.1); Creatinine Clr Calc Pharmacy 63.8 ml/min; Est GFR (African American) 62.2; Est GFR (Non-African American) 53.7; Potassium 3.9 mmol/L (3.5-5.1)
--- NOTE | 2020-02-04 10:51 | Pharmacy Report ---
Glycemic Control Consultation - Date of Service February 04, 2020 - Scope Scope: Glycemic Pharmacist consulted for glycemic control and to write orders per [facility] inpatient glycemic control protocol. - Objective Weight: 89.811 kg Accuchecks BSG (last 24hrs): 02/03/20 02/03/20 02/03/20 10:59 11:58 13:00 Glucose POC Glucose 154 H 149 H 120 H 02/03/20 02/03/20 02/03/20 14:01 15:04 16:00 Glucose POC Glucose 131 H 124 H 111 H 02/03/20 02/03/20 02/03/20 16:18 17:06 18:53 Glucose 117 H POC Glucose 110 H 147 H 02/03/20 02/04/20 02/04/20 21:14 00:14 04:25 Glucose POC Glucose 160 H 179 H 201 H 02/04/20 02/04/20 05:51 08:33 Glucose 248 H POC Glucose 235 H Laboratory Data (last 24hrs): 02/03/20 02/04/20 16:18 05:51 Potassium 4.4 3.9 Carbon Dioxide 18 L 19 L Anion Gap 12.0 H 10.0 Creatinine 1.39 H 1.35 H Est Cr Clr Drug Dosing 62.0 63.8 HbA1c: Hemoglobin A1c 10.6 % (4.5-5.6) H 02/04/20 05:47 - Recent Pertinent Medications Outpatient Anti-diabetic Regimen: * metformin 1000 mg bid * A1c = 10.6 % 02/04/20 The patient is currently receiving: * Basal insulin: Lantus 15 units every 24 hours * Correctional Insulin: Novolog Correction per scale ACHS Goal Range: Low 110 mg/dL - High 140 mg/dL Correction Factor: 25 mg/dL/unit * Prandial insulin: Per carb ratio of 1 unit per 12 grams CHO consumed Risk Factors for Insulin Resistance: * Diet: yes - Assessment & Plan Assessment & Plan: ASSESSMENT: * 29 year old now post , day 1. Type 2 diabetic managed on metformin prior to admission. Appears at one point had followed [facility] for diabetes management. Last appt in July discussed need to start insulin to better control BSGs, however some resistance with giving injections. A1c on admission is 10.6% * Managed on insulin infusion/dextrose infusion per protocol during labor. Insulin drip now discontinued. Started on Lantus 15 units this morning (~0.2 units/kg) and ordered correctional insulin * Metformin placed on hold due to rising Scr - up to 1.39 mg/dL yesterday from baseline of 0.7 mg/dL. Nephrology consulted and recommend hold of metformin with renal function decline PLAN FOR INPATIENT GLYCEMIC CONTROL: * Holding outpatient oral diabetes medications * Basal insulin * Lantus 15 units x 1 this AM * Bolus insulin * NovoLog per scale ACHS or Q6hrs while NPO * Goal Range: Low 110 mg/dL - High 140 mg/dL * Correction Factor: 20 mg/dL/unit * Nutritional / Prandial insulin per carb ratio of 1 unit per 12 grams CHO consumed PLAN FOR DISCHARGE: * A1C of 10.6% on admission indicates poor glucose control outpatient * Patient most likely benefit from starting insulin. Insulin preferable agent in post setting in breast feeding mothers. Would recommend initiation of at least basal insulin and possibly bolus insulin if patient agreeable. Patient likely benefit from diabetes education. * Will continue to follow to provide further recommendations * Please note that the plan above was derived based on current level of insulin resistance and hospital stress. These recommendations are appropriate for inpatient admission only. Plan of care upon discharge will need to be reassessed to avoid potential outpatient hypo/hyperglycemia. Thank you.
[2020-02-04] MEDS: LACTATED RINGER'S 1,000 ML IV SCH ×2 (13:10→20:21)
[2020-02-04] MEDS ORDERED: bisacodyL 5 MG TABEC PO SCH (20:00)
[2020-02-04 20:18] LABS: Basophils # (auto) 0.01 K/uL (0-0.2); Basophils % (auto) 0.1 %; Eosinophils # (auto) 0.02 K/uL (0-0.5); Eosinophils % (auto) 0.1 %; Hematocrit (blood only) 34.9 % (37-47); Immature Granulocytes # (auto) 0.07 K/uL (0.00-0.02); Immature Granulocytes % (auto) 0.5 %; Lymphocytes # (auto) 3.07 K/uL (1.2-3.4); Lymphocytes % (auto) 21.9 %; Mean Corpuscular Hemoglobin 32.2 pg (25-34); Mean Corpuscular Volume 93.6 fL (80-100); Mean Platelet Volume 11.5 fL (7.4-10.4); Monocytes # (auto) 1.47 K/uL (0.11-0.59); Monocytes % (auto) 10.5 %; Neutrophils # (auto) 9.39 K/uL (1.4-6.5); Neutrophils % (auto) 66.9 %; Platelet Count 133 K/uL (130-400); RDW Coefficient of Variation 13.6 % (11.5-14.5); RDW Standard Deviation 46.7 fL (36.4-46.3); Red Blood Count 3.73 M/uL (4.2-5.4); White Blood Count 14.03 K/uL (4.8-10.8)
[2020-02-04 20:19] LABS: Mean Corpuscular Hgb Conc 34.4 g/dL (32-36)
--- NOTE | 2020-02-04 20:29 | Nephrology Consultation ---
Date of Consultation February 04, 2020 Assessment & Plan (1) NATACHA (acute kidney injury): Patient with NATACHA likely due to ischemic ATN in setting of hypotension and prolonged labor. Patient had epidural block and BP was intermittently low. UA showing numerous RBCs which supports ATN. She is making urine. No need for HD. Anticipate improvement -Resume LR at 125ml/hr -Monitor in/out -Daily BMP (2) Type II diabetes mellitus: Patient with DM not well controlled with recent A1c of 10. Discussed importance of DM control to slow delay renal complications of DM. Ok to use metformin at this point if needed History of Present Illness Reason for Consultation: NATACHA Requesting Physician: Juan Saha MD Attending Physician: Juan Saha MD History of Present Illness This is a 29yoF with PMH of type 2 DM diagnosed 2yrs ago on meformin previously on jardiance before , A1c of 10 who had a spontaneous vaginal delivery on 02/03/20 after diagnosis of PROM. She wa sin labor for over 24hrs. She got epidural block. BP was intermittently low. She was noted to have reduced urine output in the peripartum period. Cr also increased to 1.39 from normal baseline of 0.68 in January 2020. She has 3.5g proteinuria. UA showed 10-30 RBC/HPF and 10-30 WBC/HPF. She is making urine. Had abdominal pain. No NSAIDs. Has left leg swelling after ankle sprain few weeks ago Allergies Allergy/AdvReac Type Severity Reaction Status Date / Time Sulfa (Sulfonamide Allergy Rash Verified 02/02/20 22:48 Antibiotics) amoxicillin AdvReac Intermediate HEAD TO Verified 02/02/20 22:48 TOE RASH Home Medications Home Medications Medication Instructions Recorded Confirmed Type prenat.vits,rasheed,dbk-sgig-bvwxy 1 tab PO DAILY 07/28/19 02/02/20 History aspirin 81 mg PO DAILY 02/02/20 02/02/20 History metformin 1,000 mg PO BID 02/02/20 02/02/20 History Patient History Medical History Diabetes type 2, uncontrolled Surgical History History of cholecystectomy History of wisdom tooth extraction Social History Smoking Status: Former smoker packs per day: 0.5; Smoking End Date: July 04, 2019; Second Hand Exposure: No; Hx Alcohol Use: No Hx Substance Use: No Preferred Language: [place] Communication Ability: Effective Resaw Carriage Operator Required: No Beliefs That Will Affect Care: None marital status: Current Living Situation: Spouse Other Information That Helps Us Care for You: No Feels Safe at Home: Yes Safety Concerns: Feels Safe At This Time Review of Systems Review of Systems: All systems reviewed & are unremarkable except as noted in HPI & below Physical Exam Physical Exam: General: Appears well, no distress HEENT: normocephalic, SURI, throat clear Neck: Supple, trachea central Chest: symmetrical movements. Normal breath sounds Abdomen: mod distension, mildly tender. Extremities: left leg 1+ edema, both feet warm Neurology: Orientedx3, no focal deficits Skin: no rashes MSK: Left ankle swollen and tender CVS: S1/S2 RRR, no murmurs Results & Data ([facility]) Vital Signs (Past 12 Hours) Vital Signs Temp Pulse Resp BP 02/04/20 16:06 36.6 C 88 16 104/71 02/04/20 12:44 36.7 C 106 H 16 123/81 02/04/20 08:30 36.8 C 94 H 16 98/62 L Laboratory Results 02/04/20 05:51 02/04/20 02/04/20 05:47 20:03 WBC 19.63 H 14.03 H RBC 4.23 3.73 L MCV 93.6 93.6 MCH 32.4 32.2 MCHC 34.6 34.4 RDW Std Deviation 45.5 46.7 H RDW Coeff of Doron 13.3 13.6 Plt Count 155 133 MPV 11.8 H 11.5 H
--- NOTE | 2020-02-04 22:42 | Obstetrical Progress Note ---
Date of Service February 04, 2020 Assessment & Plan (1) Normal course: PPD #1 pt doing well anticipate disch tomorrow Subjective Ambulation: ambulating normally Voiding: no voiding problems Passing Gas:: Yes Diet Tolerance:: regular diet Lochia:: Small Feeding Type:: breast feeding Review of Systems All systems reviewed & are unremarkable except as noted in HPI & below Physical Exam Constitutional WD/WN, vitals as above well developed and well nourished Eyes PERRL, conjunctivae normal, anicteric sclerae Neck trachea midline, no thyromegaly Respiratory normal respiratory effort, lungs clear to auscultation Auscultation: no crackles, no rales and no wheezes Cardiovascular RRR, no murmur, no edema Gastrointestinal (Abdomen) normal bowel sounds, soft, nontender, no hepatosplenomegaly Uterus is below umbilicus Musculoskeletal no cyanosis or clubbing, extremities motor strength 5/5 Skin no rashes, warm and dry Neurologic patellar DTR's 2+ bilat, sensation intact Psychiatric A+Ox3, euthymic affect Genitourinary normal external appearance Results & Data ([facility]) Vital Signs (Past 12 Hours) Vital Signs Temp Pulse Resp BP Pulse Ox 02/04/20 19:40 37.0 C 86 18 125/79 97 02/04/20 16:06 36.6 C 88 16 104/71 02/04/20 12:44 36.7 C 106 H 16 123/81
[2020-02-05] MEDS: INSULIN ASPART 100 UNITS/ML 3 ML PEN SC SCH ×4 (00:13→13:01)
[2020-02-05] MEDS: LACTATED RINGER'S 1,000 ML IV SCH (03:44)
[2020-02-05 05:40] LABS: Hematocrit (blood only) 34.4 % (37-47); Hemoglobin 11.7 g/dL (12.0-16.0)
[2020-02-05] MEDS ORDERED: bisacodyL 10 MG SUPP PR PRN (06:00)
--- NOTE | 2020-02-05 08:47 | Pharmacy Report ---
Pharmacy Glycemic Short Note 2 - Date of Service February 05, 2020 - Glycemic Short BSG Results (Last 24 hours): 02/04/20 02/04/20 02/04/20 05:51 12:10 17:01 Glucose 248 H POC Glucose 227 H 201 H 02/04/20 02/05/20 02/05/20 21:17 00:08 03:39 Glucose POC Glucose 220 H 245 H 221 H 02/05/20 08:13 Glucose POC Glucose 131 H ASSESSMENT: 02/04: * Patient received total of 45 units of insulin yesterday, of which 15 units were basal * Fasting BSG 131 mg/dL - however overnight checks had been added to provide additional coverage / plan to increase to 20 units daily of basal insulin * Nephrology okay use of metformin - plan to resume this morning. Would recommend continual monitoring of Scr to ensure improvement PLAN FOR INPATIENT GLYCEMIC CONTROL: * Restart home metformin * Basal insulin * Lantus 20 units daily * Bolus insulin * NovoLog per scale ACHS or Q6hrs while NPO * Goal Range: Low 110 mg/dL - High 140 mg/dL * Correction Factor: 20 mg/dL/unit * Nutritional / Prandial insulin per carb ratio of 1 unit per 10 grams CHO consumed PLAN FOR DISCHARGE: * A1C of 10.6% on admission indicates poor glucose control outpatient * Patient most likely benefit from starting insulin. Insulin preferable agent in post setting in breast feeding mothers. Would recommend initiation of at least basal insulin and possibly bolus insulin if patient agreeable. Patient likely benefit from diabetes education. * DM educator in to see patient today. Educated patient on benefits of starting insulin. Patient seems agreeable to once daily Lantus in the evening. to aide in giving injections. Would recommend the addition of Lantus 20 units daily on discharge. Would recommend close follow up outpatient as I anticipate regimen may need titrated. * Patient currently receiving Lantus in AM. If discharged 02/04, would recommend next dose of Lantus be 02/05 around noon then could start evening dosing the following day * Could consider continuation of home metformin 1 gm bid as long as renal function continues to improve. Studies indicate metformin is excreted in human breast milk. Results from studies suggest maternal ingestion of metformin during probably safe to infant, however mother should be aware of potential risks to . * Recommend self monitoring of blood glucose 3-4x/day and appropriate followup if BSGs trending up
--- NOTE | 2020-02-05 08:48 | Obstetrical Progress Note ---
Date of Service February 05, 2020 Assessment & Plan Admission and Anticipated Discharge Date Admission Date: February 02, 2020 Subjective Patient is seen and examined. She feels well, no complaints other than being sore Ambulating without dizziness Voiding without difficulty Tolerating regular diet with out N&V Bleeding is minimal No fever/ chills/ CP/ SOB/ N&V/ Leg pain Breast feeding/ pumping without problems Baby is having phototherapy and had right humeral fracture. I expressed my sorry and explained about delivery and shoulder dystocia Vital Signs Temp Pulse Resp BP Pulse Ox 02/05/20 03:30 36.5 C 65 18 117/81 96 02/04/20 23:05 36.7 C 80 18 127/83 96 02/04/20 19:40 37.0 C 86 18 125/79 97 02/04/20 16:06 36.6 C 88 16 104/71 02/04/20 12:44 36.7 C 106 H 16 123/81 Intake and Output 02/04/20 02/05/20 02/05/20 22:59 06:59 14:59 Intake Total 1654.167 / 3225.001 1570.834 / 3225.001 Output Total 1150 / 3600 900 / 3600 Balance 504.167 / -374.999 670.834 / -374.999 Intake: IV 1104.167 / 2125.001 1020.834 / 2125.001 Lr 1,000 ml @ 125 mls/hr IV . 1104.167 / 2125.001 1020.834 / 2125.001 Q8H ZAID Rx#:[id number] Oral 550 / 1100 550 / 1100 Output: Urine 1150 / 3600 900 / 3600 Labs pending PE: General: Alert, orientedx3, NAD Abd: soft, NT, fundus firm, below Umbilicus Perineum intact, Lochia rubra minimal Ext; NT, no edema AP: [] yo s/p , severe shoulder dystocia, ppd# 2, uncontrolled Type II DM VSS Afebrile doing well FS's still elevated Creatinine was 1.39 on 02/02, nephrology following, recommended CMP daily, I just placed the orders and will call them with results Continue routine care All questions were answered D/C home pending nephrology input Results & Data ([facility]) Vital Signs (Past 12 Hours) Vital Signs Temp Pulse Resp BP Pulse Ox 02/05/20 03:30 36.5 C 65 18 117/81 96 02/04/20 23:05 36.7 C 80 18 127/83 96
[2020-02-05] MEDS: ACETAMINOPHEN 325 MG TAB PO PRN (08:49)
[2020-02-05] MEDS: PRENATAL VITAMIN 1 TAB PO SCH (08:49)
[2020-02-05] MEDS: DOCUSATE SODIUM 100 MG CAP PO SCH (08:49)
[2020-02-05] MEDS: METHYLERGONOVINE MALEATE 0.2 MG TAB PO SCH ×2 (08:49→13:02)
[2020-02-05] MEDS: FERROUS SULFATE 325 MG TAB PO SCH (08:49)
[2020-02-05 08:54] LABS: Basophils # (auto) 0.02 K/uL (0-0.2); Basophils % (auto) 0.2 %; Eosinophils # (auto) 0.07 K/uL (0-0.5); Eosinophils % (auto) 0.5 %; Immature Granulocytes # (auto) 0.07 K/uL (0.00-0.02); Immature Granulocytes % (auto) 0.5 %; Lymphocytes # (auto) 3.16 K/uL (1.2-3.4); Lymphocytes % (auto) 24.3 %; Mean Corpuscular Hemoglobin 32.1 pg (25-34); Mean Platelet Volume 11.5 fL (7.4-10.4); Monocytes # (auto) 1.53 K/uL (0.11-0.59); Monocytes % (auto) 11.8 %; Neutrophils # (auto) 8.15 K/uL (1.4-6.5); Neutrophils % (auto) 62.7 %; Platelet Count 128 K/uL (130-400); RDW Coefficient of Variation 13.6 % (11.5-14.5); RDW Standard Deviation 47.6 fL (36.4-46.3); Red Blood Count 3.65 M/uL (4.2-5.4)
[2020-02-05] MEDS ORDERED: METFORMIN HCL 500 MG TAB PO SCH (09:00)
[2020-02-05] MEDS ORDERED: INSULIN GLARGINE SOLOSTAR 100 UNITS/ML 3 ML PEN SC SCH ×2 (09:00)
[2020-02-05 09:16] LABS: BUN Creatinine Ratio 17.9 (10-20); Calcium 9.1 mg/dl (8.5-10.1); Creatinine Clr Calc Pharmacy 118.1 ml/min; Est GFR (African American) 130.8; Est GFR (Non-African American) 112.9; Potassium 4.3 mmol/L (3.5-5.1)
[2020-02-05 09:18] LABS: Albumin Globulin Ratio 0.6 (0.9-2); Bilirubin,Total 0.3 mg/dl (0.2-1); Globulin 3.6 gm/dl (2.5-4.0); Total Protein 5.6 gm/dl (6.4-8.2)
[2020-02-05 09:21] LABS: Mean Corpuscular Volume 94.5 fL (80-100)
--- NOTE | 2020-02-05 09:32 | Obstetrical Progress Note ---
Date of Service February 05, 2020 Assessment & Plan Admission and Anticipated Discharge Date Admission Date: February 02, 2020 Subjective Patient is seen by Nephrology Cleared for d/c Creatinine 0.7 Recommended urine protein as by her PCP Recommended to see endocrinology for ongoing uncontrolled DM All questions were answered Results & Data ([facility]) Vital Signs (Past 12 Hours) Vital Signs Temp Pulse Resp BP Pulse Ox 02/05/20 08:15 36.5 C 71 16 119/82 02/05/20 03:30 36.5 C 65 18 117/81 96 02/04/20 23:05 36.7 C 80 18 127/83 96
--- NOTE | 2020-02-05 14:51 | Nephrology Progress Note ---
Date of Service February 05, 2020 Assessment & Plan (1) NATACHA (acute kidney injury): Patient with NATACHA likely due to ischemic ATN in setting of hypotension and prolonged labor. Patient had epidural block and BP was intermittently low. UA showing numerous RBCs which supports ATN. She is making urine. Renal function is back to baseline. -stop IV fluids. I encouraged patient to drink herself about 3 L of water daily -from renal standpoint patient can be discharged. She will need a repeat BMP and urine protein towards the end of next week. Patient can follow up with the PCP. PCP can refer patient Nephrology if repeat renal function is abnormal or urine protein does not improved. (2) Type II diabetes mellitus: Patient with DM not well controlled with recent A1c of 10. Discussed importance of DM control to slow delay renal complications of DM. Ok to use metformin at this point if needed Admission and Anticipated Discharge Date Admission Date: February 02, 2020 Subjective Patient feels better today. No shortness of breath. Left leg still swollen. No urinary symptoms. Creatinine is better at 0.7 Review of Systems Review of Systems: All systems reviewed & are unremarkable except as noted in HPI & below Physical Exam Physical Exam: General exam: Appears comfortable, no acute distress HEENT: Pupils are equal and reactive to light Neck: No JVD, neck is supple trachea is midline Respiratory system: Clear breath sounds bilaterally. Gastrointestinal: Abdomen is soft, moderately distended, moderately tender, bowel sounds are present CVS: Regular rate and rhythm. No murmurs, rubs or gallops Musculoskeletal: No joint or muscle tenderness Extremities: Non tender, 1+ edema, peripheral pulses are present Neuro: Oriented, no tremors, no focal neurological deficits Skin: No rashes Results & Data ([facility]) Vital Signs (Past 12 Hours) Vital Signs Temp Pulse Resp BP Pulse Ox 02/05/20 13:56 36.5 C 71 16 119/82 96 02/05/20 08:15 36.5 C 71 16 119/82 02/05/20 03:30 36.5 C 65 18 117/81 96 Laboratory Results 02/05/20 08:36 02/04/20 02/05/20 02/05/20 20:03 05:29 08:36 WBC 14.03 H 13.00 H RBC 3.73 L 3.65 L MCV 93.6 94.5 MCH 32.2 32.1 MCHC 34.4 34.0 RDW Std Deviation 46.7 H 47.6 H RDW Coeff of Doron 13.6 13.6 Plt Count 133 128 L MPV 11.5 H 11.5 H Albumin 2.0 L
== END 2020-02-05 15:08 | disposition home or self-care (01) | DRG 805 ==
LOC: OPB 22:26 → 4S1 22:27 → 4S2 02-03 21:19